=== PATIENT | female | born 1970 | race Caucasian/White ===

== ENCOUNTER → 2016-09-24 | Outpatient (CLI) | payer BC ==
[2014-12-12 11:24] VITALS: BP 115/75
--- NOTE | 2016-09-24 16:57 | KCIC ---
MR LUMBAR SPINE Indication: Chronic low back pain COMPARISON: None Technique: Sagittal T2, sagittal STIR, and sagittal T1-weighted images were obtained. Additional axial T1 and T2 weighted imaging was also performed. FINDINGS: Alignment and curvature are within normal limits. No compression deformities are identified. No abnormal bone marrow signal is seen. The conus is in normal position without abnormal signal. Paravertebral soft tissues are unremarkable. Visualized intra-abdominal contents are within normal limits. Level by level analysis demonstrates no significant central spinal or neural foraminal stenosis. IMPRESSION: Negative for compression fracture or canal stenosis. Electronically signed by: Mazin Arzola MD (09/24/2016 3:38 PM)
== END | disposition home or self-care (01) ==
LOC: KCIC MRI 14:19
PROVIDERS: ATTEND Physician Assistant
DX: M54.5 Low back pain (principal); G89.29 Other chronic pain
CPT/HCPCS: 72148

== ENCOUNTER 2017-01-19 15:58 | Inpatient (IN) | payer BC ==
[~2017-01-19] VITALS: Ht 175.3 cm; Wt 87.1 kg
[2017-01-19 19:00] VITALS: BP 150/98
[2017-01-19] MEDS ORDERED: LEVO150T5 PO (20:39)
[2017-01-19] MEDS ORDERED: BISACODYL 5 MG TABLET.DR. PO PRN (21:00)
[2017-01-19] MEDS: IV NORMAL SALINE 1000ML BAG 1,000 ML IV SCH (21:21)
[2017-01-19] MEDS: HYDROmorphone 2 MG/ML VIAL IV PRN (21:23)
[2017-01-19 23:00] VITALS: BP 139/98
[2017-01-20] MEDS ORDERED: LEVO150T5 PO (02:43)
[2017-01-20 03:00] VITALS: BP 123/65
[2017-01-20 05:07] LABS: BASO # 0.1 x10^3/uL (0.0-0.2); BASO % 1 % (0-3); EOS % 5 % (0-3); HEMATOCRIT 39.8 % (36.0-47.0); HEMOGLOBIN 12.9 g/dL (12.0-15.5); LYMPH # 1.5 x10^3/uL (1.0-4.8); LYMPH % 25 % (24-48); MEAN CORPUSCULAR HEMOGLOBIN 29 pg (25-35); MEAN CORPUSCULAR HGB CONC 33 g/dL (31-37); MEAN CORPUSCULAR VOLUME 90 fL (79-100); MONO % 7 % (0-9); NEUT % 62 % (31-73); PLATELET COUNT 169 x10^3/uL (140-400); RED BLOOD COUNT 4.43 x10^6/uL (3.50-5.40); RED CELL DISTRIBUTION WIDTH 14.7 % (11.5-14.5); WHITE BLOOD COUNT 6.1 x10^3/uL (4.0-11.0)
[2017-01-20 05:39] LABS: CALCIUM 8.7 mg/dL (8.5-10.1); CREATININE 0.9 mg/dL (0.6-1.0); POTASSIUM 4.2 mmol/L (3.5-5.1)
[2017-01-20 07:00] VITALS: BP 122/80
[2017-01-20] MEDS ORDERED: DOCUSATE SODIUM 283 MG/5 ML ENEMA. PR PRN (09:30)
[2017-01-20] MEDS ORDERED: MAGNESIUM CITRATE 296 ML SOLUTION. PO PRN (09:30)
[2017-01-20] MEDS ORDERED: methylPREDNISolone ACETATE 40 MG/ML VIAL. IM ONE ×2 (09:30)
[2017-01-20] MEDS ORDERED: BISACODYL 10 MG SUPP.RECT. PR PRN ×2 (09:30→10:00)
[2017-01-20] MEDS ORDERED: BUPIVACAINE MPF 0.25% 10 ML VIAL. IJ ONE (09:30)
[2017-01-20] MEDS ORDERED: LACTULOSE 20 GM/30 ML SOLUTION. PO PRN (10:00)
[2017-01-20] MEDS ORDERED: hydrALAZINE 20 MG/ML VIAL. IVP PRN (10:00)
[2017-01-20] MEDS ORDERED: DOCUSATE SODIUM 100 MG CAPSULE. PO PRN (10:00)
[2017-01-20] MEDS: MAGNESIUM HYDROXIDE 2,400 MG/30 ML ORAL.SUSP. PO SCH ×2 (10:00→20:54)
[2017-01-20] MEDS ORDERED: ACETAMINOPHEN 325 MG TABLET. PO PRN (10:00)
[2017-01-20] MEDS: PANTOPRAZOLE 40 MG TABLET.DR. PO SCH (10:11)
[2017-01-20] MEDS: BISACODYL 5 MG TABLET.DR. PO SCH (10:11)
[2017-01-20] MEDS: DOCUSATE SODIUM 100 MG CAPSULE. PO SCH ×2 (10:34→20:53)
[2017-01-20] MEDS: LEVOTHYROXINE 150 MCG TABLET PO SCH (10:35)
[2017-01-20] MEDS: IV NORMAL SALINE 1000ML BAG 1,000 ML IV SCH (10:35)
[2017-01-20 11:00] VITALS: BP 137/95
--- NOTE | 2017-01-20 13:06 | PDOC1 ---
History and Physical Date of Admission Date of Admission 01/19/17 Identification/Chief Complaint Chief Complaint back pain Problems: Source Source: Chart review, Patient History of Present Illness History of Present Illness 46yo F, with chronic back pain ,was transferred from [facility] for back pain. pt got iv pain meds and ativan overnight, currently very sleepy, cannot give me a good history. She said she has had lower back pain for 1 year, fu many docs, but cannot find an etiology and never got intervention or steroid shot. allergic to morphine, hydrocodone and oxycodone, which cause itchyness, but ok to dilaudid and tramadol. Pt said she was standing at work yesterday, felt cannot move legs with the pain , the back pain shooting down to right leg with some right leg numbness. got mulitple MRI before, last time was 10/2016. 09/2016 MRi here neg. has constipation x2 weeks, urine incontinence to dr. Chavez but pt told me no urination problem. she said right leg weakness x1 year, not obvious in exam tho. denies fever, chills, sob, cough, chest pain. Past Medical History Cardiovascular: No pertinent hx Pulmonary: No pertinent hx GI: Other Heme/Onc: No pertinent hx Endocrine: Hypothyroidism Past Surgical History Past Surgical History: Tonsillectomy Family History Family History: Hypertension Social History Smoke: No ALCOHOL: none Drugs: None Current Medications Current Medications Current Medications Medications (Trade) Dose Ordered Sig/Anibal Start Time Stop Time Status Last Admin Dose Admin Acetaminophen (Tylenol) 650 mg PRN Q6HRS PRN 01/20/17 10:00 Bisacodyl (Dulcolax Supp) 10 mg PRN DAILY PRN 01/20/17 10:00 UNV Bisacodyl (Dulcolax Tab) 10 mg DAILY 01/20/17 09:45 01/20/17 10:11 10 MG Bupivacaine HCl (Sensorcaine-Mpf 0.25%) 10 ml 1X ONCE 01/20/17 09:30 01/20/17 09:44 DC 01/20/17 10:10 10 ML Docusate Sodium (Colace) 100 mg BID 01/20/17 11:00 01/20/17 10:34 100 MG Docusate Sodium (Enemeez) 283 mg PRN DAILY PRN 01/20/17 09:30 Hydralazine HCl (Apresoline) 10 mg PRN Q4HRS PRN 01/20/17 10:00 Hydromorphone HCl (Dilaudid) 2 mg PRN Q2HR PRN 01/19/17 21:00 01/19/17 21:23 2 MG Ibuprofen (Motrin) 800 mg TID 01/20/17 14:00 Lactulose 20 gm PRN Q12HR PRN 01/20/17 10:00 Levothyroxine Sodium (Synthroid) 150 mcg DAILY07 01/20/17 11:00 01/20/17 10:35 150 MCG Lorazepam (Ativan) 1 mg PRN Q4HRS PRN 01/19/17 21:00 01/20/17 09:57 DC 01/20/17 08:34 0.5 MG Magnesium Hydroxide (Milk Of Magnesia) 2,400 mg BID 01/20/17 10:00 01/20/17 10:00 2,400 MG Magnesium Citrate (Citroma) 296 ml PRN 1X PRN 01/20/17 09:30 Methylprednisolone Acetate (DEPO-Medrol 40MG VIAL) 40 mg 1X ONCE 01/20/17 09:30 01/20/17 09:44 DC 01/20/17 10:10 40 MG Ondansetron HCl (Zofran) 4 mg PRN Q6HRS PRN 01/20/17 10:00 Pantoprazole Sodium (Protonix) 40 mg DAILYAC 01/20/17 10:30 01/20/17 10:11 40 MG Senna/Docusate Sodium (Senna Plus) 1 tab BID 01/20/17 21:00 Sodium Chloride 1,000 ml @ 75 mls/hr [id number] 01/19/17 21:30 01/20/17 10:35 75 MLS/HR Tramadol HCl (Ultram) 100 mg PRN Q6HRS PRN 01/20/17 10:00 Allergies Allergies Allergies Coded Allergies Type Severity Reaction Last Updated Verified Penicillins Allergy Intermediate Itching 12/09/14 Yes codeine Allergy Intermediate Itching 12/12/14 Yes hydrocodone Allergy Intermediate Hives 01/19/17 Yes oxycodone Allergy Intermediate Hives 12/12/14 Yes metoclopramide Adverse Reaction Severe Visual Halluciations 12/11/14 Yes ROS Review of System CONSTITUTIONAL: No fever or chills EYES: No recent changes SKIN: No rash or itching CARDIOVASCULAR: No chest pain, syncope, palpitations, or edema RESPIRATORY: No SOB or cough GASTROINTESTINAL: No nausea, vomiting or abdominal pain NEUROLOGICAL: No headaches or weakness ENDOCRINE: No cold or heat intolerance GENITOURINARY: No urgency or frequency of urination MUSCULOSKELETAL: No back pain or joint pain LYMPHATICS: No enlarged lymph nodes PSYCHIATRIC: No anxiety or depression Physical Exam Physical Exam GEN.: No apparent distress. Alert and oriented. very sleepy HEENT: Head is normocephalic, atraumatic NECK: Supple. LUNGS: Clear to auscultation. HEART: RRR, S1, S2 present. Peripheral pulses intact ABDOMEN: Soft, nontender. Positive bowel sounds. EXTREMITIES: Without any cyanosis. right side not obvious weakness compared to left side NEUROLOGIC: Normal speech, normal tone PSYCHIATRIC: Normal affect, normal mood. SKIN: No ulcerations Vitals Vitals Vital Signs Date Time Temp Pulse Resp B/P (MAP) Pulse Ox O2 Delivery O2 Flow Rate FiO2 01/20/17 11:00 97.5 68 16 137/95 (109) 99 Room Air 97.5 Labs Labs Laboratory Tests Test 01/20/17 04:37 White Blood Count 6.1 x10^3/uL (4.0-11.0) Red Blood Count 4.43 x10^6/uL (3.50-5.40) Hemoglobin 12.9 g/dL (12.0-15.5) Hematocrit 39.8 % (36.0-47.0) Mean Corpuscular Volume 90 fL (79-100) Mean Corpuscular Hemoglobin 29 pg (25-35) Mean Corpuscular Hemoglobin Concent 33 g/dL (31-37) Red Cell Distribution Width 14.7 % (11.5-14.5) Platelet Count 169 x10^3/uL (140-400) Neutrophils (%) (Auto) 62 % (31-73) Lymphocytes (%) (Auto) 25 % (24-48) Monocytes (%) (Auto) 7 % (0-9) Eosinophils (%) (Auto) 5 % (0-3) Basophils (%) (Auto) 1 % (0-3) Neutrophils # (Auto) 3.7 x10^3uL (1.8-7.7) Lymphocytes # (Auto) 1.5 x10^3/uL (1.0-4.8) Monocytes # (Auto) 0.4 x10^3/uL (0.0-1.1) Eosinophils # (Auto) 0.3 x10^3/uL (0.0-0.7) Basophils # (Auto) 0.1 x10^3/uL (0.0-0.2) Sodium Level 139 mmol/L (136-145) Potassium Level 4.2 mmol/L (3.5-5.1) Chloride Level 105 mmol/L (98-107) Carbon Dioxide Level 24 mmol/L (21-32) Anion Gap 10 (6-14) Blood Urea Nitrogen 12 mg/dL (7-20) Creatinine 0.9 mg/dL (0.6-1.0) Estimated GFR (Cockcroft-Gault) 68.0 Glucose Level 87 mg/dL (70-99) Calcium Level 8.7 mg/dL (8.5-10.1) Laboratory Tests Test 01/20/17 04:37 White Blood Count 6.1 x10^3/uL (4.0-11.0) Red Blood Count 4.43 x10^6/uL (3.50-5.40) Hemoglobin 12.9 g/dL (12.0-15.5) Hematocrit 39.8 % (36.0-47.0) Mean Corpuscular Volume 90 fL (79-100) Mean Corpuscular Hemoglobin 29 pg (25-35) Mean Corpuscular Hemoglobin Concent 33 g/dL (31-37) Red Cell Distribution Width 14.7 % (11.5-14.5) Platelet Count 169 x10^3/uL (140-400) Neutrophils (%) (Auto) 62 % (31-73) Lymphocytes (%) (Auto) 25 % (24-48) Monocytes (%) (Auto) 7 % (0-9) Eosinophils (%) (Auto) 5 % (0-3) Basophils (%) (Auto) 1 % (0-3) Neutrophils # (Auto) 3.7 x10^3uL (1.8-7.7) Lymphocytes # (Auto) 1.5 x10^3/uL (1.0-4.8) Monocytes # (Auto) 0.4 x10^3/uL (0.0-1.1) Eosinophils # (Auto) 0.3 x10^3/uL (0.0-0.7) Basophils # (Auto) 0.1 x10^3/uL (0.0-0.2) Sodium Level 139 mmol/L (136-145) Potassium Level 4.2 mmol/L (3.5-5.1) Chloride Level 105 mmol/L (98-107) Carbon Dioxide Level 24 mmol/L (21-32) Anion Gap 10 (6-14) Blood Urea Nitrogen 12 mg/dL (7-20) Creatinine 0.9 mg/dL (0.6-1.0) Estimated GFR (Cockcroft-Gault) 68.0 Glucose Level 87 mg/dL (70-99) Calcium Level 8.7 mg/dL (8.5-10.1) VTE Prophylaxis Ordered VTE Prophylaxis Devices: Yes VTE Pharmacological Prophylaxi: Yes Assessment/Plan Assessment/Plan worsening chronic lower back pain 2/2 muscle sprain vs. sciatica constipation hypothyroidism plan: fu with , steroid injection today, MRI held as per dr. Chavez cont synthroid, check tsh ,t4 pain control, add dilaudid po dvt ppx add stool softner. ALTHEA GOOD MD Jan 20, 2017 13:06
[2017-01-20] MEDS: ONDANSETRON PF 4 MG/2 ML VIAL. IV PRN (13:36)
--- NOTE | 2017-01-20 14:17 | PDOC2 ---
NEUROLOGY CONSULT Date of Admission Date of Admission DATE: 01/20/17 TIME: 14:08 Reason for Consult Reason for Consult: Back pain Referring Physician Referring Physician: Dr. Sadler PCP: Dr. Pierson Source Source: Chart review, Patient History of Present Illness History of Present Illness The patient is a 46-year-old right-handed female who has had chronic back pain radiating down both legs for at least 2 years. She occasionally has right foot numbness. She has had several MRI studies. She has had physical therapy. She has not had any interventional pain procedures. She has had recent imaging studies as reviewed below. She went to the [facility] emergency room and was transferred down here. Neurology, neurosurgery, and physiatry have been consulted. Past Medical History Heme/Onc: Anemia NOS Psych: Anxiety, Depression Musculoskeletal: low back pain Renal/: UTI, Other (polycystic ovarian syndrome, endometriosis, nephrolithiasis) Endocrine: Hypothyroidism Past Surgical History Past Surgical History: , Tonsillectomy, Other (thyroidectomy, several D and C's) Family History Family History: Arthritis Social History Social History Single, stressed out at work and at home, one child is disabled, no tobacco or alcohol Current Medications Current Medications Current Medications Sodium Chloride 1,000 ml @ 75 mls/hr [id number] IV Last administered on 10:35; Start 01/19/17 at 21:30; Stop 01/20/17 at 12:59; Status DC Hydromorphone HCl (Dilaudid) 2 mg PRN Q2HR PRN IV PAIN Last administered on 21:23; Start 01/19/17 at 21:00 Lorazepam (Ativan) 1 mg PRN Q4HRS PRN IV ANXIETY / AGITATION Last administered on 01/20/17 08:34; Start 01/19/17 at 21:00; Stop 01/20/17 at 09:57; Status DC Bisacodyl (Dulcolax Tab) 10 mg PRN DAILY PRN PO CONSTIPATION Last administered on 01/19/17 21:23; Start 01/19/17 at 21:00; Stop 01/20/17 at 09:42; Status DC Bisacodyl (Dulcolax Tab) 10 mg DAILY PO Last administered on 01/20/17 10:11; Start 01/20/17 at 09:45 Methylprednisolone Acetate (DEPO-Medrol 40MG VIAL) 40 mg 1X ONCE IM Last administered on 01/20/17 10:09; Start 01/20/17 at 09:30; Stop 01/20/17 at 09:44 ; Status DC Methylprednisolone Acetate (DEPO-Medrol 40MG VIAL) 40 mg 1X ONCE IM Last administered on 01/20/17 10:10; Start 01/20/17 at 09:30; Stop 01/20/17 at 09:44 ; Status DC Bupivacaine HCl (Sensorcaine-Mpf 0.25%) 10 ml 1X ONCE IJ Last administered on 01/20/17 10:10; Start 01/20/17 at 09:30; Stop 01/20/17 at 09:44; Status DC Bisacodyl (Dulcolax Supp) 10 mg PRN DAILY PRN AL CONSTIPATION; Start 01/20/17 at 09:30 Magnesium Citrate (Citroma) 296 ml PRN 1X PRN PO CONSTIPATION; Start 01/20/17 at 09:30 Docusate Sodium (Enemeez) 283 mg PRN DAILY PRN AL CONSTIPATION; Start 01/20/17 at 09:30 Ibuprofen (Motrin) 800 mg TID PO ; Start 01/20/17 at 14:00 Pantoprazole Sodium (Protonix) 40 mg DAILYAC PO Last administered on 01/20/17 10:11; Start 01/20/17 at 10:30 Levothyroxine Sodium (Synthroid) 150 mcg DAILY07 PO Last administered on 10:35; Start 01/20/17 at 11:00 Acetaminophen (Tylenol) 650 mg PRN Q6HRS PRN PO FEVER; Start 01/20/17 at 10:00 Ondansetron HCl (Zofran) 4 mg PRN Q6HRS PRN IV NAUSEA/VOMITING Last administered on 01/20/17 13:36; Start 01/20/17 at 10:00 Hydralazine HCl (Apresoline) 10 mg PRN Q4HRS PRN IVP ELEVATED BP, SEE COMMENTS ; Start 01/20/17 at 10:00 Docusate Sodium (Colace) 100 mg PRN DAILY PRN PO CONSTIPATION; Start 01/20/17 at 10:00 Tramadol HCl (Ultram) 100 mg PRN Q6HRS PRN PO PAIN; Start 01/20/17 at 10:00 Senna/Docusate Sodium (Senna Plus) 1 tab BID PO ; Start 01/20/17 at 21:00 Docusate Sodium (Colace) 100 mg BID PO Last administered on 01/20/17 10:34; Start 01/20/17 at 11:00 Magnesium Hydroxide (Milk Of Magnesia) 2,400 mg BID PO Last administered on 10:00; Start 01/20/17 at 10:00 Lactulose 20 gm PRN Q12HR PRN PO CONSTIPATION; Start 01/20/17 at 10:00 Bisacodyl (Dulcolax Supp) 10 mg PRN DAILY PRN AL CONSTIPATION; Start 01/20/17 at 10:00; Status UNV Hydromorphone HCl (Dilaudid) 2 mg PRN Q4HRS PRN PO PAIN; Start 01/20/17 at 13: 00 Enoxaparin Sodium (Lovenox 40mg Syringe) 40 mg Q24H SQ ; Start 01/20/17 at 14:00 Active Scripts Active Reported Levothyroxine Sodium 150 Mcg Tablet 1 Tab PO DAILY Levothyroxine Sodium 150 Mcg Tablet 1 Tab PO DAILY Allergies Allergies: Coded Allergies: Penicillins (Verified Allergy, Intermediate, Itching, 12/09/14) codeine (Verified Allergy, Intermediate, Itching, 12/12/14) Reports codeine, and codeine "related", also "oxy's" make her itch hydrocodone (Verified Allergy, Intermediate, Hives, 01/19/17) Itching and Hives after taking Lortab and Percocet. Dilaudid ok oxycodone (Verified Allergy, Intermediate, Hives, 12/12/14) Itching and Hives after taking Percocet and Lortab metoclopramide (Verified Adverse Reaction, Severe, Visual Halluciations, ) Visual Hallucinations ROS Review of System Patient denies fevers, chills, weight loss, dyspnea, angina, abdominal pain, change in bowels, or dysuria. 14 point review of systems is negative. Physical Exam Physical Examination PHYSICAL EXAMINATION: Vital signs: see above. General appearance is normal and in no acute distress. She is fast asleep when I come in the room, easily aroused. HEENT: Normocephalic and nontraumatic. Eyes, nose, ears, and throat are unremarkable. Neck is supple. No lymphadenopathy. No bruits are heard over the carotid artery. No crepitus. Back: Fairly good range of motion, normal straight leg raising tests. NEUROLOGICAL EXAMINATION: Mental Status Examination: Alert. Oriented to time, place, and person. Answers questions and follows commends. Pupils are equal round and reactive to light and accommodation. Extraocular movements are intact. Visual field exam shows no defect on the direct confrontation. No motor or sensory deficits on the facial exam. Uvula in the midline and the soft palate elevated symmetrically. No deviation of the tongue to any direction. Gross hearing is normal. Shoulder shrug normal. Muscle tone is normal. Muscle strength is 5. Deep tendon reflexes are 2+ all around. Plantar reflex is with flexion response bilaterally. [id number] test performance is accurate. Tandem walk test is accurate. Alternative movements are accurate. Romberg test is negative. Gait is antalgic. Sensory exam shows no deficits. No cerebellar signs are elicited. Vitals VITALS Vital Signs Date Time Temp Pulse Resp B/P (MAP) Pulse Ox O2 Delivery O2 Flow Rate FiO2 01/20/17 11:00 97.5 68 16 137/95 (109) 99 Room Air 97.5 Labs Labs Laboratory Tests Test 01/20/17 04:37 White Blood Count 6.1 x10^3/uL (4.0-11.0) Red Blood Count 4.43 x10^6/uL (3.50-5.40) Hemoglobin 12.9 g/dL (12.0-15.5) Hematocrit 39.8 % (36.0-47.0) Mean Corpuscular Volume 90 fL (79-100) Mean Corpuscular Hemoglobin 29 pg (25-35) Mean Corpuscular Hemoglobin Concent 33 g/dL (31-37) Red Cell Distribution Width 14.7 % (11.5-14.5) Platelet Count 169 x10^3/uL (140-400) Neutrophils (%) (Auto) 62 % (31-73) Lymphocytes (%) (Auto) 25 % (24-48) Monocytes (%) (Auto) 7 % (0-9) Eosinophils (%) (Auto) 5 % (0-3) Basophils (%) (Auto) 1 % (0-3) Neutrophils # (Auto) 3.7 x10^3uL (1.8-7.7) Lymphocytes # (Auto) 1.5 x10^3/uL (1.0-4.8) Monocytes # (Auto) 0.4 x10^3/uL (0.0-1.1) Eosinophils # (Auto) 0.3 x10^3/uL (0.0-0.7) Basophils # (Auto) 0.1 x10^3/uL (0.0-0.2) Sodium Level 139 mmol/L (136-145) Potassium Level 4.2 mmol/L (3.5-5.1) Chloride Level 105 mmol/L (98-107) Carbon Dioxide Level 24 mmol/L (21-32) Anion Gap 10 (6-14) Blood Urea Nitrogen 12 mg/dL (7-20) Creatinine 0.9 mg/dL (0.6-1.0) Estimated GFR (Cockcroft-Gault) 68.0 Glucose Level 87 mg/dL (70-99) Calcium Level 8.7 mg/dL (8.5-10.1) Laboratory Tests Test 01/20/17 04:37 White Blood Count 6.1 x10^3/uL (4.0-11.0) Red Blood Count 4.43 x10^6/uL (3.50-5.40) Hemoglobin 12.9 g/dL (12.0-15.5) Hematocrit 39.8 % (36.0-47.0) Mean Corpuscular Volume 90 fL (79-100) Mean Corpuscular Hemoglobin 29 pg (25-35) Mean Corpuscular Hemoglobin Concent 33 g/dL (31-37) Red Cell Distribution Width 14.7 % (11.5-14.5) Platelet Count 169 x10^3/uL (140-400) Neutrophils (%) (Auto) 62 % (31-73) Lymphocytes (%) (Auto) 25 % (24-48) Monocytes (%) (Auto) 7 % (0-9) Eosinophils (%) (Auto) 5 % (0-3) Basophils (%) (Auto) 1 % (0-3) Neutrophils # (Auto) 3.7 x10^3uL (1.8-7.7) Lymphocytes # (Auto) 1.5 x10^3/uL (1.0-4.8) Monocytes # (Auto) 0.4 x10^3/uL (0.0-1.1) Eosinophils # (Auto) 0.3 x10^3/uL (0.0-0.7) Basophils # (Auto) 0.1 x10^3/uL (0.0-0.2) Sodium Level 139 mmol/L (136-145) Potassium Level 4.2 mmol/L (3.5-5.1) Chloride Level 105 mmol/L (98-107) Carbon Dioxide Level 24 mmol/L (21-32) Anion Gap 10 (6-14) Blood Urea Nitrogen 12 mg/dL (7-20) Creatinine 0.9 mg/dL (0.6-1.0) Estimated GFR (Cockcroft-Gault) 68.0 Glucose Level 87 mg/dL (70-99) Calcium Level 8.7 mg/dL (8.5-10.1) Images Images MRI lumbar 09/24/16: MR LUMBAR SPINE Indication: Chronic low back pain COMPARISON: None Technique: Sagittal T2, sagittal STIR, and sagittal T1-weighted images were obtained. Additional axial T1 and T2 weighted imaging was also performed. FINDINGS: Alignment and curvature are within normal limits. No compression deformities are identified. No abnormal bone marrow signal is seen. The conus is in normal position without abnormal signal. Paravertebral soft tissues are unremarkable. Visualized intra-abdominal contents are within normal limits. Level by level analysis demonstrates no significant central spinal or neural foraminal stenosis. IMPRESSION: Negative for compression fracture or canal stenosis. CT abdomen/pelvis 11/19/16: Comparison: CT pelvis without contrast July 24, 2013 Technique: Multiple CT images of the abdomen and pelvis were obtained following uneventful intravenous administration of 75 mL Omnipaque 300. Coronal and sagittal reformations were obtained. PQRS Compliance Statement: One or more of the following individualized dose reduction techniques were utilized for this examination: 1. Automated exposure control 2. Adjustment of the mA and/or kV according to patient size 3. Use of iterative reconstruction technique Findings: Abdomen and pelvis: Heart size is normal and lung bases are clear. Examination is somewhat limited due to motion artifact especially of the mid abdomen. Liver is normal in morphology. There is a stable 7 mm hypodense hepatic segment 8 (series 4/image 9) and is too small to definitively characterize, though stability suggests benign cyst or hemangioma. Evaluation of the inferior right and left lobes of the liver is significantly limited due to motion artifact. Prior cholecystectomy. No intra or extra-axial biliary ductal dilatation. Spleen, adrenal glands and pancreas are within normal limits. There are a few 2 mm nonobstructive left renal calculi. No collecting system dilatation. Abdominal aorta is normal in caliber. Mild calcified atheromatous disease of the iliac arteries. No bowel obstruction. No abdominal free fluid. There is fecal lies distal small bowel contents which suggests component of delayed transit. Mild distended and unopacified urinary bladder demonstrates mild circumferential urinary bladder wall thickening. Uterus is present and, though incompletely evaluated by CT. No iliac or inguinal lymphadenopathy. No retroperitoneal lymphadenopathy. No destructive osseous lesions. Impression: 1. Examination of the mid abdomen is somewhat limited due to motion. 2. Two tiny nonobstructive left nephrolithiasis. 3. Mild circumferential urinary bladder wall thickening, can be seen with cystitis. Correlation with urinalysis is recommended. Assessment/Plan Assessment/Plan Impression: Back pain, negative imaging studies, negative examination, no evidence of a neurological cause. she does have some kidney stones which should not be causing a problem. Recommendations: Physiatry and neurosurgery have been consulted and there is really nothing for this neurologist to add at this time. I would be glad to do an EMG study if deemed necessary by neurosurgery, but Dr. Chavez can do this as well. 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 Thank you for letting me help with the patient's care. CLEMENCIA BEAR MD Jan 20, 2017 14:17
--- NOTE | 2017-01-20 14:55 | RAD ---
Portable abdomen, 01/20/2017: History: Constipation There is increased stool, particularly in the left colon. The abdominal gas pattern is otherwise unremarkable. There is no evidence of organomegaly. Surgical clips are present in the right upper quadrant compatible with a cholecystectomy. Lower pelvic calcifications are compatible with phleboliths. IMPRESSION: Increased stool in the colon.
[2017-01-20 15:00] VITALS: BP 132/87
[2017-01-20] MEDS: IBUPROFEN 800 MG TABLET. PO SCH ×2 (16:03→20:54)
[2017-01-20] MEDS: ENOXAPARIN 40 MG/0.4 ML SYRINGE. SQ SCH (16:03)
--- NOTE | 2017-01-20 16:13 | CONS ---
DATE OF CONSULTATION: 01/20/2017 DATE OF SERVICE: 01/20/2017 REQUESTING AND ATTENDING PHYSICIAN: Dr. Sadler. REASON FOR CONSULTATION: Rehab evaluation. PATIENT LOCATION: Room #444. HISTORY OF PRESENT ILLNESS: This is a 46-year-old female admitted through Emergency Room with complaint of severe lower back pain with radiation to her right lower extremity with associated numbness and also admits urinary incontinence and constipation for about 2 weeks. She denies any specific injury. Problem started about 6 months ago. She had all the radiological studies which failed to reveal any abnormalities, but MRI scan done in October, I can look at the pictures which revealed mild bulging of the disk at L5-S1 and to some extent at L4-L5 without any obvious stenosis or neural foraminal compromise. The patient had gone through physical therapy without any lasting help. ALLERGIES: The patient is known ALLERGIC TO PENICILLIN, CODEINE, HYDROCODONE, REGLAN and OXYCODONE. SOCIAL HISTORY: She lives with her and children in [place], [place], home had no steps for her to manage. 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 PHYSICAL EXAMINATION: Today revealed a middle-aged female patient in moderate distress. She is somewhat sleepy this morning. She is using oxygen by nasal cannula. The patient admits that she has not slept for about 2 days. The patient had tenderness to palpation over right sacroiliac joint area and trochanteric bursa. Straight leg raising test is negative bilaterally. No significant lumbar paraspinal muscle spasm was noted at this time. She also had minimal tenderness to palpation over left sacroiliac joint and trochanteric bursa. She had pain free range of motion of both hip, knee and ankle joints. She had 5/5 grade muscle strength in her lower extremities. Deep tendon reflexes are 2+ at her knees, 1+ at both ankles. She had slightly decreased touch and pinprick sensation over right lateral femoral cutaneous nerve distribution in the right thigh lateral aspect. Other than that equal perception of touch and pinprick sensation bilaterally. She admits some numbness in her right hand, but on physical examination, she had normal neurological examination of both upper extremities. She had painful limited movements of her lumbar spine. She is independent with bed mobility. She transfers slowly and she made a few steps at bedside. Her skin is intact at this time. Negative Tinel sign over right lateral femoral cutaneous nerve over inguinal ligament area. ASSESSMENT: A middle-aged female with chronic lower back pain, most probably from degenerative disk disease of lumbar vertebrae with right lumbar radiculitis. No clinical evidence of ongoing lumbar radiculopathy. She also presents with meralgia paresthetica of the right thigh. She also presents with trochanteric bursitis bilaterally, right side more than left side. RECOMMENDATIONS: At her request, I have injected painful right sacroiliac joint and right trochanteric bursa under aseptic skin technique after skin preparation using alcohol swab with Marcaine and Depo-Medrol solution. She tolerated the procedure satisfactorily without any side effects. To get her lumbar corset, to ask Physical Therapy to see her for proper body mechanics. I have instructed her in home exercise program of physical modalities, stretching exercises and proper body mechanics. She was advised to use a cane in her left hand to help ease her right trochanteric bursa pain and the pain eases, to start her on ibuprofen as an anti-inflammatory medication and Protonix to help protect her stomach and to consider lumbar epidural steroid injections if the pain persists. Dr. Sadler, I appreciate asking me to participate in the care of this interesting patient. I will be glad to follow her with you as needed for her rehabilitation. PENNY KING MD DR: MARCELL/po JOB#: [id number] / [id number] LEXA Barrera MD
[2017-01-20] MEDS: traMADol 50 MG TABLET PO PRN (17:38)
[2017-01-20 19:00] VITALS: BP 123/83
[2017-01-20] MEDS: SENNOSIDES/DOCUSATE 8.6/50MG TABLET. PO SCH (20:53)
[2017-01-20] MEDS: HYDROmorphone 2 MG/ML VIAL IV PRN (21:53)
[2017-01-20 23:00] VITALS: BP 117/81
[2017-01-21 03:00] VITALS: BP 116/79
[2017-01-21] MEDS: ONDANSETRON PF 4 MG/2 ML VIAL. IV PRN (05:39)
[2017-01-21 05:40] LABS: BASO # 0.1 x10^3/uL (0.0-0.2); BASO % 1 % (0-3); EOS % 3 % (0-3); HEMATOCRIT 39.1 % (36.0-47.0); HEMOGLOBIN 13.2 g/dL (12.0-15.5); LYMPH # 1.1 x10^3/uL (1.0-4.8); LYMPH % 22 % (24-48); MEAN CORPUSCULAR HEMOGLOBIN 30 pg (25-35); MEAN CORPUSCULAR HGB CONC 34 g/dL (31-37); MEAN CORPUSCULAR VOLUME 88 fL (79-100); MONO % 8 % (0-9); NEUT % 66 % (31-73); PLATELET COUNT 204 x10^3/uL (140-400); RED BLOOD COUNT 4.46 x10^6/uL (3.50-5.40); RED CELL DISTRIBUTION WIDTH 14.7 % (11.5-14.5); WHITE BLOOD COUNT 4.9 x10^3/uL (4.0-11.0)
[2017-01-21 06:14] LABS: CALCIUM 8.7 mg/dL (8.5-10.1); CREATININE 0.9 mg/dL (0.6-1.0)
[2017-01-21 06:24] LABS: FREE T4 0.77 ng/dL (0.76-1.46)
[2017-01-21 07:00] VITALS: BP 130/83
--- NOTE | 2017-01-21 07:49 | PDOC ---
PROGRESS NOTES Assessment Back pain, negative imaging studies, negative examination, no evidence of a neurological cause. she does have some kidney stones which should not be causing a problem. She is no better after injections by Dr. Chavez Plan Physiatry and neurosurgery have been consulted and there is really nothing for this neurologist to add at this time. Note the patient has failed on Lyrica, antidepressants, and does not want to take any stronger narcotics because of her job and 5 children I would be glad to do an EMG study if deemed necessary by neurosurgery, but Dr. Chavez can do this as well. Nothing to be gained by continued hospital stay, the next step is to consult pain management as an outpatient. Subjective Pain is no better Objective Vital Signs Date Time Temp Pulse Resp B/P (MAP) Pulse Ox O2 Delivery O2 Flow Rate FiO2 01/21/17 03:00 98.9 60 18 116/79 (91) 96 Room Air 98.9 01/20/17 20:00 2.0 PHYSICAL EXAM Alert. Oriented to time, place and person. PERRL. EOMI. CN: no focal findings. Muscle tone: normal. Muscle strength: 5/5 DTR: 2+ Plantar reflex: Flexor Gait: Antalgic Sensory exam: no abnormal findings. No cerebellar signs elicited. Review of Relevant I have reviewed the following items kayla (where applicable) has been applied. Labs Laboratory Tests Test 01/20/17 04:37 01/21/17 05:15 White Blood Count 6.1 x10^3/uL (4.0-11.0) 4.9 x10^3/uL (4.0-11.0) Red Blood Count 4.43 x10^6/uL (3.50-5.40) 4.46 x10^6/uL (3.50-5.40) Hemoglobin 12.9 g/dL (12.0-15.5) 13.2 g/dL (12.0-15.5) Hematocrit 39.8 % (36.0-47.0) 39.1 % (36.0-47.0) Mean Corpuscular Volume 90 fL (79-100) 88 fL (79-100) Mean Corpuscular Hemoglobin 29 pg (25-35) 30 pg (25-35) Mean Corpuscular Hemoglobin Concent 33 g/dL (31-37) 34 g/dL (31-37) Red Cell Distribution Width 14.7 % (11.5-14.5) 14.7 % (11.5-14.5) Platelet Count 169 x10^3/uL (140-400) 204 x10^3/uL (140-400) Neutrophils (%) (Auto) 62 % (31-73) 66 % (31-73) Lymphocytes (%) (Auto) 25 % (24-48) 22 % (24-48) Monocytes (%) (Auto) 7 % (0-9) 8 % (0-9) Eosinophils (%) (Auto) 5 % (0-3) 3 % (0-3) Basophils (%) (Auto) 1 % (0-3) 1 % (0-3) Neutrophils # (Auto) 3.7 x10^3uL (1.8-7.7) 3.2 x10^3uL (1.8-7.7) Lymphocytes # (Auto) 1.5 x10^3/uL (1.0-4.8) 1.1 x10^3/uL (1.0-4.8) Monocytes # (Auto) 0.4 x10^3/uL (0.0-1.1) 0.4 x10^3/uL (0.0-1.1) Eosinophils # (Auto) 0.3 x10^3/uL (0.0-0.7) 0.2 x10^3/uL (0.0-0.7) Basophils # (Auto) 0.1 x10^3/uL (0.0-0.2) 0.1 x10^3/uL (0.0-0.2) Sodium Level 139 mmol/L (136-145) 139 mmol/L (136-145) Potassium Level 4.2 mmol/L (3.5-5.1) 4.0 mmol/L (3.5-5.1) Chloride Level 105 mmol/L (98-107) 103 mmol/L (98-107) Carbon Dioxide Level 24 mmol/L (21-32) 31 mmol/L (21-32) Anion Gap 10 (6-14) 5 (6-14) Blood Urea Nitrogen 12 mg/dL (7-20) 13 mg/dL (7-20) Creatinine 0.9 mg/dL (0.6-1.0) 0.9 mg/dL (0.6-1.0) Estimated GFR (Cockcroft-Gault) 68.0 68.0 Glucose Level 87 mg/dL (70-99) 98 mg/dL (70-99) Calcium Level 8.7 mg/dL (8.5-10.1) 8.7 mg/dL (8.5-10.1) Thyroid Stimulating Hormone (TSH) 123.840 uIU/mL (0.358-3.74) Free Thyroxine 0.77 ng/dL (0.76-1.46) Laboratory Tests Test 01/21/17 05:15 White Blood Count 4.9 x10^3/uL (4.0-11.0) Red Blood Count 4.46 x10^6/uL (3.50-5.40) Hemoglobin 13.2 g/dL (12.0-15.5) Hematocrit 39.1 % (36.0-47.0) Mean Corpuscular Volume 88 fL (79-100) Mean Corpuscular Hemoglobin 30 pg (25-35) Mean Corpuscular Hemoglobin Concent 34 g/dL (31-37) Red Cell Distribution Width 14.7 % (11.5-14.5) Platelet Count 204 x10^3/uL (140-400) Neutrophils (%) (Auto) 66 % (31-73) Lymphocytes (%) (Auto) 22 % (24-48) Monocytes (%) (Auto) 8 % (0-9) Eosinophils (%) (Auto) 3 % (0-3) Basophils (%) (Auto) 1 % (0-3) Neutrophils # (Auto) 3.2 x10^3uL (1.8-7.7) Lymphocytes # (Auto) 1.1 x10^3/uL (1.0-4.8) Monocytes # (Auto) 0.4 x10^3/uL (0.0-1.1) Eosinophils # (Auto) 0.2 x10^3/uL (0.0-0.7) Basophils # (Auto) 0.1 x10^3/uL (0.0-0.2) Sodium Level 139 mmol/L (136-145) Potassium Level 4.0 mmol/L (3.5-5.1) Chloride Level 103 mmol/L (98-107) Carbon Dioxide Level 31 mmol/L (21-32) Anion Gap 5 (6-14) Blood Urea Nitrogen 13 mg/dL (7-20) Creatinine 0.9 mg/dL (0.6-1.0) Estimated GFR (Cockcroft-Gault) 68.0 Glucose Level 98 mg/dL (70-99) Calcium Level 8.7 mg/dL (8.5-10.1) Thyroid Stimulating Hormone (TSH) 123.840 uIU/mL (0.358-3.74) Free Thyroxine 0.77 ng/dL (0.76-1.46) Medications Current Medications Sodium Chloride 1,000 ml @ 75 mls/hr [id number] IV Last administered on 10:35; Start 01/19/17 at 21:30; Stop 01/20/17 at 12:59; Status DC Hydromorphone HCl (Dilaudid) 2 mg PRN Q2HR PRN IV PAIN Last administered on 21:53; Start 01/19/17 at 21:00 Lorazepam (Ativan) 1 mg PRN Q4HRS PRN IV ANXIETY / AGITATION Last administered on 01/20/17 08:34; Start 01/19/17 at 21:00; Stop 01/20/17 at 09:57; Status DC Bisacodyl (Dulcolax Tab) 10 mg PRN DAILY PRN PO CONSTIPATION Last administered on 01/19/17 21:23; Start 01/19/17 at 21:00; Stop 01/20/17 at 09:42; Status DC Bisacodyl (Dulcolax Tab) 10 mg DAILY PO Last administered on 01/20/17 10:11; Start 01/20/17 at 09:45 Methylprednisolone Acetate (DEPO-Medrol 40MG VIAL) 40 mg 1X ONCE IM Last administered on 01/20/17 10:09; Start 01/20/17 at 09:30; Stop 01/20/17 at 09:44 ; Status DC Methylprednisolone Acetate (DEPO-Medrol 40MG VIAL) 40 mg 1X ONCE IM Last administered on 01/20/17 10:10; Start 01/20/17 at 09:30; Stop 01/20/17 at 09:44 ; Status DC Bupivacaine HCl (Sensorcaine-Mpf 0.25%) 10 ml 1X ONCE IJ Last administered on 01/20/17 10:10; Start 01/20/17 at 09:30; Stop 01/20/17 at 09:44; Status DC Bisacodyl (Dulcolax Supp) [address] CONSTIPATION; Start 01/20/17 at 09:30 Magnesium Citrate (Citroma) 296 ml PRN 1X PRN PO CONSTIPATION; Start 01/20/17 at 09:30 Docusate Sodium (Enemeez) [address] CONSTIPATION; Start 01/20/17 at 09:30 Ibuprofen (Motrin) 800 mg TID PO Last administered on 01/20/17 20:54; Start 01/20/17 at 14:00 Pantoprazole Sodium (Protonix) 40 mg DAILYAC PO Last administered on 01/20/17 10:11; Start 01/20/17 at 10:30 Levothyroxine Sodium (Synthroid) 150 mcg DAILY07 PO Last administered on 10:35; Start 01/20/17 at 11:00 Acetaminophen (Tylenol) 650 mg PRN Q6HRS PRN PO FEVER; Start 01/20/17 at 10:00 Ondansetron HCl (Zofran) 4 mg PRN Q6HRS PRN IV NAUSEA/VOMITING Last administered on 01/21/17 05:39; Start 01/20/17 at 10:00 Hydralazine HCl (Apresoline) 10 mg PRN Q4HRS PRN IVP ELEVATED BP, SEE COMMENTS ; Start 01/20/17 at 10:00 Docusate Sodium (Colace) 100 mg PRN DAILY PRN PO CONSTIPATION; Start 01/20/17 at 10:00 Tramadol HCl (Ultram) 100 mg PRN Q6HRS PRN PO PAIN Last administered on 17:38; Start 01/20/17 at 10:00 Senna/Docusate Sodium (Senna Plus) 1 tab BID PO Last administered on 01/20/17 20:53; Start 01/20/17 at 21:00 Docusate Sodium (Colace) 100 mg BID PO Last administered on 01/20/17 20:53; Start 01/20/17 at 11:00 Magnesium Hydroxide (Milk Of Magnesia) 2,400 mg BID PO Last administered on 20:54; Start 01/20/17 at 10:00 Lactulose 20 gm PRN Q12HR PRN PO CONSTIPATION; Start 01/20/17 at 10:00 Bisacodyl (Dulcolax Supp) [address] CONSTIPATION; Start 01/20/17 at 10:00; Status UNV Hydromorphone HCl (Dilaudid) 2 mg PRN Q4HRS PRN PO PAIN; Start 01/20/17 at 13: 00 Enoxaparin Sodium (Lovenox 40mg Syringe) 40 mg Q24H SQ Last administered on 16:03; Start 01/20/17 at 14:00 Alprazolam (Xanax) 0.25 mg PRN TID PRN PO ANXIETY / AGITATION; Start 01/20/17 at 17:00 Active Scripts Active Reported Levothyroxine Sodium 150 Mcg Tablet 1 Tab PO DAILY Levothyroxine Sodium 150 Mcg Tablet 1 Tab PO DAILY Vitals/I & O Vital Sign - Last 24 Hours 01/20/17 01/20/17 01/20/17 01/20/17 08:20 11:00 15:00 17:38 Temp 97.5 97.9 97.5 97.9 Pulse 68 55 Resp 16 16 B/P (MAP) 137/95 (109) 132/87 (102) Pulse Ox 99 97 O2 Delivery Room Air Room Air Room Air Nasal Cannula O2 Flow Rate 2.0 01/20/17 01/20/17 01/20/17 01/20/17 18:38 19:00 20:00 21:53 Temp 96.7 96.7 Pulse 69 Resp 16 18 16 B/P (MAP) 123/83 (96) Pulse Ox 98 98 98 O2 Delivery Room Air Room Air Room Air Room Air O2 Flow Rate 2.0 2.0 01/20/17 01/20/17 01/21/17 22:23 23:00 03:00 Temp 97.5 98.9 97.5 98.9 Pulse 68 60 Resp 16 18 18 B/P (MAP) 117/81 (93) 116/79 (91) Pulse Ox 98 99 96 O2 Delivery Room Air Room Air Room Air CLEMENCIA BEAR MD Jan 21, 2017 07:49
[2017-01-21] MEDS: ALPRAZolam 0.25 MG TABLET PO PRN ×2 (09:29→16:27)
[2017-01-21] MEDS: IBUPROFEN 800 MG TABLET. PO SCH ×3 (09:29→21:35)
[2017-01-21] MEDS: LEVOTHYROXINE 150 MCG TABLET PO SCH (09:30)
[2017-01-21] MEDS: SENNOSIDES/DOCUSATE 8.6/50MG TABLET. PO SCH ×2 (09:30→19:47)
[2017-01-21] MEDS: BISACODYL 5 MG TABLET.DR. PO SCH (09:30)
[2017-01-21] MEDS: DOCUSATE SODIUM 100 MG CAPSULE. PO SCH ×2 (09:30→19:46)
[2017-01-21] MEDS: PANTOPRAZOLE 40 MG TABLET.DR. PO SCH (09:30)
[2017-01-21] MEDS: MAGNESIUM HYDROXIDE 2,400 MG/30 ML ORAL.SUSP. PO SCH ×2 (09:31→19:47)
[2017-01-21 11:00] VITALS: BP 123/90
--- NOTE | 2017-01-21 12:05 | RAD ---
EXAMINATION: Magnetic resonance imaging (MRI) of the lumbar spine without contrast HISTORY: Low back pain in 7 months of right leg radiculopathy. TECHNIQUE: Multiplanar multi-weighted MRI of the lumbar spine was performed without intravenous contrast using the standard lumbar spine protocol. Contrast information: None administered COMPARISON: MRI lumbar spine September 24, 2016 FINDINGS: The alignment of the lumbar spine is normal. There is a superior endplate Schmorl's node involving S1. There are no compression fractures. The conus medullaris terminates at the level of L1-L2. The distal spinal cord signal intensity is normal. Mild disc desiccation at L5-S1. No annular fissures are identified. Limited views of the abdomen and pelvis show no soft tissue abnormality. The aorta is normal. L2-L3: The disc is normal in configuration. There is no facet arthropathy. There is no neuroforaminal stenosis. There is no spinal canal stenosis. L3-L4: The disc is normal in configuration. There is no facet arthropathy. There is no neuroforaminal stenosis. There is no spinal canal stenosis. L4-L5: The disc is normal in configuration. There is mild facet arthropathy. There is no neuroforaminal stenosis. There is no spinal canal stenosis. L5-S1: The disc is normal in configuration. There is moderate facet arthropathy. There is no neuroforaminal stenosis. There is no spinal canal stenosis. IMPRESSION: 1. There is a superior endplate Schmorl's node involving S1. Findings appear slightly evolved since September 24, 2016. 2. Mild disc desiccation at L5-S1. No significant neuroforaminal or spinal canal stenosis. Electronically signed by: Shanna Valdes MD (01/21/2017 12:01 PM) [id number]
[2017-01-21] MEDS: traMADol 50 MG TABLET PO PRN (12:41)
[2017-01-21] MEDS: ENOXAPARIN 40 MG/0.4 ML SYRINGE. SQ SCH (14:00)
--- NOTE | 2017-01-21 14:32 | PDOC ---
PROGRESS NOTES Chief Complaint Chief Complaint worsening chronic lower back pain 2/2 muscle sprain vs. sciatica constipation hypothyroidism, uncontrolled plan: fu with , steroid injection today, MRI done cont synthroid, increase to 175mcg daily check tsh ,t4 pain control, add dilaudid po dvt ppx add stool softner. KUB done showed stool post steroid injection by dr. Chavez 01/20 History of Present Illness History of Present Illness ros: NO fever, chills, sob or chest pain c/p back pain, no improvement post steroid injection still c/o right leg weakness, which is chronic no bm X2 weeks some hypthyroidism symptoms Vitals Vitals Vital Signs Date Time Temp Pulse Resp B/P (MAP) Pulse Ox O2 Delivery O2 Flow Rate FiO2 01/21/17 12:41 100 Room Air 01/21/17 11:00 97.5 68 18 123/90 (101) 97.5 01/20/17 20:00 2.0 Physical Exam General: Alert, Oriented X3, Cooperative Heart: Regular rate, Normal S1, Normal S2 Lungs: Clear Abdomen: Normal bowel sounds, Soft Extremities: No clubbing, No cyanosis Skin: No rashes Labs LABS Laboratory Tests Test 01/21/17 05:15 White Blood Count 4.9 x10^3/uL (4.0-11.0) Red Blood Count 4.46 x10^6/uL (3.50-5.40) Hemoglobin 13.2 g/dL (12.0-15.5) Hematocrit 39.1 % (36.0-47.0) Mean Corpuscular Volume 88 fL (79-100) Mean Corpuscular Hemoglobin 30 pg (25-35) Mean Corpuscular Hemoglobin Concent 34 g/dL (31-37) Red Cell Distribution Width 14.7 % (11.5-14.5) Platelet Count 204 x10^3/uL (140-400) Neutrophils (%) (Auto) 66 % (31-73) Lymphocytes (%) (Auto) 22 % (24-48) Monocytes (%) (Auto) 8 % (0-9) Eosinophils (%) (Auto) 3 % (0-3) Basophils (%) (Auto) 1 % (0-3) Neutrophils # (Auto) 3.2 x10^3uL (1.8-7.7) Lymphocytes # (Auto) 1.1 x10^3/uL (1.0-4.8) Monocytes # (Auto) 0.4 x10^3/uL (0.0-1.1) Eosinophils # (Auto) 0.2 x10^3/uL (0.0-0.7) Basophils # (Auto) 0.1 x10^3/uL (0.0-0.2) Sodium Level 139 mmol/L (136-145) Potassium Level 4.0 mmol/L (3.5-5.1) Chloride Level 103 mmol/L (98-107) Carbon Dioxide Level 31 mmol/L (21-32) Anion Gap 5 (6-14) Blood Urea Nitrogen 13 mg/dL (7-20) Creatinine 0.9 mg/dL (0.6-1.0) Estimated GFR (Cockcroft-Gault) 68.0 Glucose Level 98 mg/dL (70-99) Calcium Level 8.7 mg/dL (8.5-10.1) Thyroid Stimulating Hormone (TSH) 123.840 uIU/mL (0.358-3.74) Free Thyroxine 0.77 ng/dL (0.76-1.46) Comment Review of Relevant I have reviewed the following items kayla (where applicable) has been applied. Labs Laboratory Tests Test 01/20/17 04:37 01/21/17 05:15 White Blood Count 6.1 x10^3/uL (4.0-11.0) 4.9 x10^3/uL (4.0-11.0) Red Blood Count 4.43 x10^6/uL (3.50-5.40) 4.46 x10^6/uL (3.50-5.40) Hemoglobin 12.9 g/dL (12.0-15.5) 13.2 g/dL (12.0-15.5) Hematocrit 39.8 % (36.0-47.0) 39.1 % (36.0-47.0) Mean Corpuscular Volume 90 fL (79-100) 88 fL (79-100) Mean Corpuscular Hemoglobin 29 pg (25-35) 30 pg (25-35) Mean Corpuscular Hemoglobin Concent 33 g/dL (31-37) 34 g/dL (31-37) Red Cell Distribution Width 14.7 % (11.5-14.5) 14.7 % (11.5-14.5) Platelet Count 169 x10^3/uL (140-400) 204 x10^3/uL (140-400) Neutrophils (%) (Auto) 62 % (31-73) 66 % (31-73) Lymphocytes (%) (Auto) 25 % (24-48) 22 % (24-48) Monocytes (%) (Auto) 7 % (0-9) 8 % (0-9) Eosinophils (%) (Auto) 5 % (0-3) 3 % (0-3) Basophils (%) (Auto) 1 % (0-3) 1 % (0-3) Neutrophils # (Auto) 3.7 x10^3uL (1.8-7.7) 3.2 x10^3uL (1.8-7.7) Lymphocytes # (Auto) 1.5 x10^3/uL (1.0-4.8) 1.1 x10^3/uL (1.0-4.8) Monocytes # (Auto) 0.4 x10^3/uL (0.0-1.1) 0.4 x10^3/uL (0.0-1.1) Eosinophils # (Auto) 0.3 x10^3/uL (0.0-0.7) 0.2 x10^3/uL (0.0-0.7) Basophils # (Auto) 0.1 x10^3/uL (0.0-0.2) 0.1 x10^3/uL (0.0-0.2) Sodium Level 139 mmol/L (136-145) 139 mmol/L (136-145) Potassium Level 4.2 mmol/L (3.5-5.1) 4.0 mmol/L (3.5-5.1) Chloride Level 105 mmol/L (98-107) 103 mmol/L (98-107) Carbon Dioxide Level 24 mmol/L (21-32) 31 mmol/L (21-32) Anion Gap 10 (6-14) 5 (6-14) Blood Urea Nitrogen 12 mg/dL (7-20) 13 mg/dL (7-20) Creatinine 0.9 mg/dL (0.6-1.0) 0.9 mg/dL (0.6-1.0) Estimated GFR (Cockcroft-Gault) 68.0 68.0 Glucose Level 87 mg/dL (70-99) 98 mg/dL (70-99) Calcium Level 8.7 mg/dL (8.5-10.1) 8.7 mg/dL (8.5-10.1) Thyroid Stimulating Hormone (TSH) 123.840 uIU/mL (0.358-3.74) Free Thyroxine 0.77 ng/dL (0.76-1.46) Laboratory Tests Test 01/21/17 05:15 White Blood Count 4.9 x10^3/uL (4.0-11.0) Red Blood Count 4.46 x10^6/uL (3.50-5.40) Hemoglobin 13.2 g/dL (12.0-15.5) Hematocrit 39.1 % (36.0-47.0) Mean Corpuscular Volume 88 fL (79-100) Mean Corpuscular Hemoglobin 30 pg (25-35) Mean Corpuscular Hemoglobin Concent 34 g/dL (31-37) Red Cell Distribution Width 14.7 % (11.5-14.5) Platelet Count 204 x10^3/uL (140-400) Neutrophils (%) (Auto) 66 % (31-73) Lymphocytes (%) (Auto) 22 % (24-48) Monocytes (%) (Auto) 8 % (0-9) Eosinophils (%) (Auto) 3 % (0-3) Basophils (%) (Auto) 1 % (0-3) Neutrophils # (Auto) 3.2 x10^3uL (1.8-7.7) Lymphocytes # (Auto) 1.1 x10^3/uL (1.0-4.8) Monocytes # (Auto) 0.4 x10^3/uL (0.0-1.1) Eosinophils # (Auto) 0.2 x10^3/uL (0.0-0.7) Basophils # (Auto) 0.1 x10^3/uL (0.0-0.2) Sodium Level 139 mmol/L (136-145) Potassium Level 4.0 mmol/L (3.5-5.1) Chloride Level 103 mmol/L (98-107) Carbon Dioxide Level 31 mmol/L (21-32) Anion Gap 5 (6-14) Blood Urea Nitrogen 13 mg/dL (7-20) Creatinine 0.9 mg/dL (0.6-1.0) Estimated GFR (Cockcroft-Gault) 68.0 Glucose Level 98 mg/dL (70-99) Calcium Level 8.7 mg/dL (8.5-10.1) Thyroid Stimulating Hormone (TSH) 123.840 uIU/mL (0.358-3.74) Free Thyroxine 0.77 ng/dL (0.76-1.46) Medications Current Medications Sodium Chloride 1,000 ml @ 75 mls/hr [id number] IV Last administered on 10:35; Start 01/19/17 at 21:30; Stop 01/20/17 at 12:59; Status DC Hydromorphone HCl (Dilaudid) 2 mg PRN Q2HR PRN IV PAIN Last administered on 21:53; Start 01/19/17 at 21:00 Lorazepam (Ativan) 1 mg PRN Q4HRS PRN IV ANXIETY / AGITATION Last administered on 01/20/17 08:34; Start 01/19/17 at 21:00; Stop 01/20/17 at 09:57; Status DC Bisacodyl (Dulcolax Tab) 10 mg PRN DAILY PRN PO CONSTIPATION Last administered on 01/19/17 21:23; Start 01/19/17 at 21:00; Stop 01/20/17 at 09:42; Status DC Bisacodyl (Dulcolax Tab) 10 mg DAILY PO Last administered on 01/21/17 09:30; Start 01/20/17 at 09:45 Methylprednisolone Acetate (DEPO-Medrol 40MG VIAL) 40 mg 1X ONCE IM Last administered on 01/20/17 10:09; Start 01/20/17 at 09:30; Stop 01/20/17 at 09:44 ; Status DC Methylprednisolone Acetate (DEPO-Medrol 40MG VIAL) 40 mg 1X ONCE IM Last administered on 01/20/17 10:10; Start 01/20/17 at 09:30; Stop 01/20/17 at 09:44 ; Status DC Bupivacaine HCl (Sensorcaine-Mpf 0.25%) 10 ml 1X ONCE IJ Last administered on 01/20/17 10:10; Start 01/20/17 at 09:30; Stop 01/20/17 at 09:44; Status DC Bisacodyl (Dulcolax Supp) 10 mg PRN DAILY PRN [place] CONSTIPATION; Start 01/20/17 at 09:30 Magnesium Citrate (Citroma) 296 ml PRN 1X PRN PO CONSTIPATION; Start 01/20/17 at 09:30 Docusate Sodium (Enemeez) 283 mg PRN DAILY PRN [place] CONSTIPATION; Start 01/20/17 at 09:30 Ibuprofen (Motrin) 800 mg TID PO Last administered on 01/21/17 09:29; Start 01/20/17 at 14:00 Pantoprazole Sodium (Protonix) 40 mg DAILYAC PO Last administered on 01/21/17 09:30; Start 01/20/17 at 10:30 Levothyroxine Sodium (Synthroid) 150 mcg DAILY07 PO Last administered on 09:30; Start 01/20/17 at 11:00; Stop 01/21/17 at 11:07; Status DC Acetaminophen (Tylenol) 650 mg PRN Q6HRS PRN PO FEVER; Start 01/20/17 at 10:00 Ondansetron HCl (Zofran) 4 mg PRN Q6HRS PRN IV NAUSEA/VOMITING Last administered on 01/21/17 05:39; Start 01/20/17 at 10:00 Hydralazine HCl (Apresoline) 10 mg PRN Q4HRS PRN IVP ELEVATED BP, SEE COMMENTS ; Start 01/20/17 at 10:00 Docusate Sodium (Colace) 100 mg PRN DAILY PRN PO CONSTIPATION; Start 01/20/17 at 10:00 Tramadol HCl (Ultram) 100 mg PRN Q6HRS PRN PO PAIN Last administered on 12:41; Start 01/20/17 at 10:00 Senna/Docusate Sodium (Senna Plus) 1 tab BID PO Last administered on 01/21/17 09:30; Start 01/20/17 at 21:00 Docusate Sodium (Colace) 100 mg BID PO Last administered on 01/21/17 09:30; Start 01/20/17 at 11:00 Magnesium Hydroxide (Milk Of Magnesia) 2,400 mg BID PO Last administered on 09:31; Start 01/20/17 at 10:00 Lactulose 20 gm PRN Q12HR PRN PO CONSTIPATION; Start 01/20/17 at 10:00 Bisacodyl (Dulcolax Supp) 10 mg PRN DAILY PRN [place] CONSTIPATION; Start 01/20/17 at 10:00; Status UNV Hydromorphone HCl (Dilaudid) 2 mg PRN Q4HRS PRN PO PAIN; Start 01/20/17 at 13: 00 Enoxaparin Sodium (Lovenox 40mg Syringe) 40 mg Q24H SQ Last administered on 16:03; Start 01/20/17 at 14:00 Alprazolam (Xanax) 0.25 mg PRN TID PRN PO ANXIETY / AGITATION Last administered on 01/21/17 09:29; Start 01/20/17 at 17:00 Levothyroxine Sodium (Synthroid) 175 mcg DAILY07 PO ; Start 01/22/17 at 07:00 Active Scripts Active Reported Levothyroxine Sodium 150 Mcg Tablet 1 Tab PO DAILY Levothyroxine Sodium 150 Mcg Tablet 1 Tab PO DAILY Vitals/I & O Vital Sign - Last 24 Hours 01/20/17 01/20/17 01/20/17 01/20/17 15:00 17:38 18:38 19:00 Temp 97.9 96.7 97.9 96.7 Pulse 55 69 Resp 16 16 18 B/P (MAP) 132/87 (102) 123/83 (96) Pulse Ox 97 98 98 O2 Delivery Room Air Nasal Cannula Room Air Room Air O2 Flow Rate 2.0 2.0 01/20/17 01/20/17 01/20/17 01/20/17 20:00 21:53 22:23 23:00 Temp 97.5 97.5 Pulse 68 Resp 16 16 18 B/P (MAP) 117/81 (93) Pulse Ox 98 98 99 O2 Delivery Room Air Room Air Room Air Room Air O2 Flow Rate 2.0 01/21/17 01/21/17 01/21/17 01/21/17 03:00 07:00 11:00 12:41 Temp 98.9 96.8 97.5 98.9 96.8 97.5 Pulse 60 65 68 Resp 18 18 18 B/P (MAP) 116/79 (91) 130/83 (99) 123/90 (101) Pulse Ox 96 100 100 100 O2 Delivery Room Air Room Air Room Air Room Air ALTHEA CRUZ MD Jan 21, 2017 14:32
[2017-01-21 15:00] VITALS: BP 127/88
[2017-01-21] MEDS: POLYETHYLENE GLYCOL 3350 17 GM PACKET. PO SCH (15:00)
--- NOTE | 2017-01-21 15:15 | PDOC ---
Provider Note Provider Note Attempted to see patient in MRI Lumbar MRI reviewed- unchanged from previous study. Degenerative changes seen. No significant central canal or neural foraminal narrowing. Do not see a surgical problem. Recommend Pain Clinic consult and could f/u with me as an OP if needed. Call with questions. SHELLI VARGAS MD Jan 21, 2017 15:15
[2017-01-21 19:00] VITALS: BP 114/82
[2017-01-21 23:00] VITALS: BP 115/77
[2017-01-22] MEDS: LEVOTHYROXINE 175 MCG TABLET PO SCH (06:45)
[2017-01-22] MEDS: PANTOPRAZOLE 40 MG TABLET.DR. PO SCH (06:45)
[2017-01-22 07:00] VITALS: BP 123/91
[2017-01-22] MEDS: SENNOSIDES/DOCUSATE 8.6/50MG TABLET. PO SCH ×2 (09:00→20:37)
[2017-01-22] MEDS: BISACODYL 5 MG TABLET.DR. PO SCH (09:00)
[2017-01-22] MEDS: DOCUSATE SODIUM 100 MG CAPSULE. PO SCH ×2 (09:00→20:37)
[2017-01-22] MEDS: MAGNESIUM HYDROXIDE 2,400 MG/30 ML ORAL.SUSP. PO SCH ×2 (09:00→20:36)
[2017-01-22] MEDS: POLYETHYLENE GLYCOL 3350 17 GM PACKET. PO SCH (09:00)
[2017-01-22] MEDS: IBUPROFEN 800 MG TABLET. PO SCH ×3 (09:42→20:38)
[2017-01-22] MEDS: HYDROmorphone 2 MG TABLET PO PRN ×3 (09:54→20:38)
[2017-01-22 11:00] VITALS: BP 128/83
--- NOTE | 2017-01-22 13:58 | PDOC ---
PROGRESS NOTES Chief Complaint Chief Complaint worsening chronic lower back pain 2/2 muscle sprain vs. sciatica ASSESSMENT AND PLAN: 1. Acute on chronic LBP: MRI essentially unchanged. not a surgical issue. s/ p steroid injection 12/23. F/U with , 2. Pain control: ok with narcotics, but pt does not want chronic narcotics a an option. 3. Hypothyroidism: TSH 124 (!). cont synthroid, increased to 175mcg daily. O /P F/U in 1 month 4. Constipation: prob 2/2 narcotics. bowel regimen 5. DVT prophylaxis History of Present Illness History of Present Illness sx unchanged, although she is sitting comfortably in bed, legs crossed Vitals Vitals Vital Signs Date Time Temp Pulse Resp B/P (MAP) Pulse Ox O2 Delivery O2 Flow Rate FiO2 01/22/17 11:00 97.9 65 16 128/83 (98) 99 Room Air 97.9 01/22/17 10:54 2.0 Physical Exam General: Alert, Oriented X3, Cooperative, No acute distress Heart: Regular rate Lungs: Clear Abdomen: Normal bowel sounds, Soft Extremities: No clubbing Skin: No rashes ALFA BATRES MD Jan 22, 2017 13:57
[2017-01-22 15:00] VITALS: BP 124/86
[2017-01-22] MEDS: ALPRAZolam 0.25 MG TABLET PO PRN (15:35)
[2017-01-22] MEDS: ENOXAPARIN 40 MG/0.4 ML SYRINGE. SQ SCH (15:36)
[2017-01-22 19:40] VITALS: BP 133/96
[2017-01-22 23:59] VITALS: BP 123/73
[2017-01-23 03:59] VITALS: BP 114/72
[2017-01-23] MEDS: HYDROmorphone 2 MG TABLET PO PRN (06:48)
[2017-01-23] MEDS: LEVOTHYROXINE 175 MCG TABLET PO SCH (06:48)
[2017-01-23 07:00] VITALS: BP 131/95
[2017-01-23] MEDS: BISACODYL 5 MG TABLET.DR. PO SCH (10:12)
[2017-01-23] MEDS: MAGNESIUM HYDROXIDE 2,400 MG/30 ML ORAL.SUSP. PO SCH ×2 (10:12→21:06)
[2017-01-23] MEDS: PANTOPRAZOLE 40 MG TABLET.DR. PO SCH (10:12)
[2017-01-23] MEDS: IBUPROFEN 800 MG TABLET. PO SCH ×3 (10:13→21:06)
[2017-01-23] MEDS: SENNOSIDES/DOCUSATE 8.6/50MG TABLET. PO SCH ×2 (10:13→21:06)
[2017-01-23] MEDS: DOCUSATE SODIUM 100 MG CAPSULE. PO SCH ×2 (10:14→21:06)
[2017-01-23] MEDS: POLYETHYLENE GLYCOL 3350 17 GM PACKET. PO SCH (10:14)
[2017-01-23 11:00] VITALS: BP 127/95
[2017-01-23] MEDS: ENOXAPARIN 40 MG/0.4 ML SYRINGE. SQ SCH (14:41)
[2017-01-23] MEDS: ALPRAZolam 0.25 MG TABLET PO PRN (14:42)
[2017-01-23] MEDS: HYDROmorphone 2 MG/ML VIAL IV PRN ×2 (14:42→21:07)
[2017-01-23 15:00] VITALS: BP 135/98
[2017-01-23 19:00] VITALS: BP 134/97
[2017-01-23] MEDS: ONDANSETRON PF 4 MG/2 ML VIAL. IV PRN (22:11)
[2017-01-23 23:00] VITALS: BP 134/88
[2017-01-24 03:00] VITALS: BP 145/92
[2017-01-24] MEDS: HYDROmorphone 2 MG/ML VIAL IV PRN ×3 (06:36→21:31)
[2017-01-24 07:00] VITALS: BP 127/84
[2017-01-24] MEDS: IBUPROFEN 800 MG TABLET. PO SCH ×3 (08:31→21:00)
[2017-01-24] MEDS: PANTOPRAZOLE 40 MG TABLET.DR. PO SCH (08:31)
[2017-01-24] MEDS: LEVOTHYROXINE 175 MCG TABLET PO SCH (08:31)
[2017-01-24] MEDS: POLYETHYLENE GLYCOL 3350 17 GM PACKET. PO SCH (08:32)
[2017-01-24] MEDS: DOCUSATE SODIUM 100 MG CAPSULE. PO SCH ×2 (08:32→21:00)
[2017-01-24] MEDS: MAGNESIUM HYDROXIDE 2,400 MG/30 ML ORAL.SUSP. PO SCH ×2 (08:33→21:00)
[2017-01-24] MEDS: SENNOSIDES/DOCUSATE 8.6/50MG TABLET. PO SCH ×2 (08:33→21:00)
[2017-01-24] MEDS: BISACODYL 5 MG TABLET.DR. PO SCH (08:33)
[2017-01-24 11:00] VITALS: BP 119/84
--- NOTE | 2017-01-24 11:12 | PDOC ---
PROGRESS NOTES Chief Complaint Chief Complaint worsening chronic lower back pain 2/2 muscle sprain vs. sciatica ASSESSMENT AND PLAN: 1. Acute on chronic LBP: MRI essentially unchanged. not a surgical issue. s/ p steroid injection 12/23. F/U with , 2. Pain control: ok with narcotics, but pt does not want chronic narcotics a an option. 3. Hypothyroidism: TSH 124 (!). cont synthroid, increased to 175mcg daily. O /P F/U in 1 month 4. Constipation: prob 2/2 narcotics. bowel regimen 5. DVT prophylaxis History of Present Illness History of Present Illness considering epidural, can walk a little sx unchanged, can walk w. walker, Vitals Vitals Vital Signs Date Time Temp Pulse Resp B/P (MAP) Pulse Ox O2 Delivery O2 Flow Rate FiO2 01/24/17 07:30 98 Room Air 01/24/17 07:00 97.5 65 16 127/84 (98) 97.5 Physical Exam General: Alert, Oriented X3, Cooperative, No acute distress Heart: Regular rate Lungs: Clear Abdomen: Normal bowel sounds, Soft Extremities: No clubbing Skin: No rashes Review of Systems Review of Systems back pain, anxiety, upset about situation, has adjustment disorder Comment Review of Relevant I have reviewed the following items kayla (where applicable) has been applied. Medications Current Medications Sodium Chloride 1,000 ml @ 75 mls/hr [id number] IV Last administered on 10:35; Start 01/19/17 at 21:30; Stop 01/20/17 at 12:59; Status DC Hydromorphone HCl (Dilaudid) 2 mg PRN Q2HR PRN IV PAIN Last administered on 06:36; Start 01/19/17 at 21:00 Lorazepam (Ativan) 1 mg PRN Q4HRS PRN IV ANXIETY / AGITATION Last administered on 01/20/17 08:34; Start 01/19/17 at 21:00; Stop 01/20/17 at 09:57; Status DC Bisacodyl (Dulcolax Tab) 10 mg PRN DAILY PRN PO CONSTIPATION Last administered on 01/19/17 21:23; Start 01/19/17 at 21:00; Stop 01/20/17 at 09:42; Status DC Bisacodyl (Dulcolax Tab) 10 mg DAILY PO Last administered on 01/23/17 10:12; Start 01/20/17 at 09:45 Methylprednisolone Acetate (DEPO-Medrol 40MG VIAL) 40 mg 1X ONCE IM Last administered on 01/20/17 10:09; Start 01/20/17 at 09:30; Stop 01/20/17 at 09:44 ; Status DC Methylprednisolone Acetate (DEPO-Medrol 40MG VIAL) 40 mg 1X ONCE IM Last administered on 01/20/17 10:10; Start 01/20/17 at 09:30; Stop 01/20/17 at 09:44 ; Status DC Bupivacaine HCl (Sensorcaine-Mpf 0.25%) 10 ml 1X ONCE IJ Last administered on 01/20/17 10:10; Start 01/20/17 at 09:30; Stop 01/20/17 at 09:44; Status DC Bisacodyl (Dulcolax Supp) 10 mg PRN DAILY PRN [place] CONSTIPATION; Start 01/20/17 at 09:30 Magnesium Citrate (Citroma) 296 ml PRN 1X PRN PO CONSTIPATION; Start 01/20/17 at 09:30 Docusate Sodium (Enemeez) 283 mg PRN DAILY PRN CO CONSTIPATION; Start 01/20/17 at 09:30 Ibuprofen (Motrin) 800 mg TID PO Last administered on 01/24/17 08:31; Start 01/20/17 at 14:00 Pantoprazole Sodium (Protonix) 40 mg DAILYAC PO Last administered on 01/24/17 08:31; Start 01/20/17 at 10:30 Levothyroxine Sodium (Synthroid) 150 mcg DAILY07 PO Last administered on 09:30; Start 01/20/17 at 11:00; Stop 01/21/17 at 11:07; Status DC Acetaminophen (Tylenol) 650 mg PRN Q6HRS PRN PO FEVER; Start 01/20/17 at 10:00 Ondansetron HCl (Zofran) 4 mg PRN Q6HRS PRN IV NAUSEA/VOMITING Last administered on 01/23/17 22:11; Start 01/20/17 at 10:00 Hydralazine HCl (Apresoline) 10 mg PRN Q4HRS PRN IVP ELEVATED BP, SEE COMMENTS ; Start 01/20/17 at 10:00 Docusate Sodium (Colace) 100 mg PRN DAILY PRN PO CONSTIPATION; Start 01/20/17 at 10:00 Tramadol HCl (Ultram) 100 mg PRN Q6HRS PRN PO PAIN Last administered on 12:41; Start 01/20/17 at 10:00 Senna/Docusate Sodium (Senna Plus) 1 tab BID PO Last administered on 01/23/17 21:06; Start 01/20/17 at 21:00 Docusate Sodium (Colace) 100 mg BID PO Last administered on 01/24/17 08:32; Start 01/20/17 at 11:00 Magnesium Hydroxide (Milk Of Magnesia) 2,400 mg BID PO Last administered on 21:06; Start 01/20/17 at 10:00 Lactulose 20 gm PRN Q12HR PRN PO CONSTIPATION; Start 01/20/17 at 10:00 Bisacodyl (Dulcolax Supp) 10 mg PRN DAILY PRN CO CONSTIPATION; Start 01/20/17 at 10:00; Status UNV Hydromorphone HCl (Dilaudid) 2 mg PRN Q4HRS PRN PO PAIN Last administered on 06:48; Start 01/20/17 at 13:00 Enoxaparin Sodium (Lovenox 40mg Syringe) 40 mg Q24H SQ Last administered on 14:41; Start 01/20/17 at 14:00 Alprazolam (Xanax) 0.25 mg PRN TID PRN PO ANXIETY / AGITATION Last administered on 01/23/17 14:42; Start 01/20/17 at 17:00 Levothyroxine Sodium (Synthroid) 175 mcg DAILY07 PO Last administered on 08:31; Start 01/22/17 at 07:00 Polyethylene Glycol (miraLAX PACKET) 17 gm DAILY PO Last administered on 10:14; Start 01/21/17 at 15:00 Active Scripts Active Reported Levothyroxine Sodium 150 Mcg Tablet 1 Tab PO DAILY Levothyroxine Sodium 150 Mcg Tablet 1 Tab PO DAILY Vitals/I & O Vital Sign - Last 24 Hours 01/23/17 01/23/17 01/23/17 01/23/17 14:42 15:00 19:00 21:07 Temp 97.7 97.9 97.7 97.9 Pulse 67 64 Resp 20 18 18 16 B/P (MAP) 135/98 (110) 134/97 (109) Pulse Ox 93 100 O2 Delivery Room Air Room Air Room Air Room Air 01/23/17 01/23/17 01/24/17 01/24/17 21:39 23:00 03:00 06:36 Temp 97.5 97.5 97.5 97.5 Pulse 69 60 Resp 18 20 18 18 B/P (MAP) 134/88 (103) 145/92 (109) Pulse Ox 99 98 O2 Delivery Room Air Room Air Room Air 01/24/17 01/24/17 07:00 07:30 Temp 97.5 97.5 Pulse 65 Resp 16 B/P (MAP) 127/84 (98) Pulse Ox 98 98 O2 Delivery Room Air Room Air IRENA KO MD Jan 24, 2017 11:12
--- NOTE | 2017-01-24 14:54 | PDOC ---
PROGRESS NOTES Assessment Assessment IMPRESSION: Back pain. Right leg pain. Obesity. Hypothyroidism. No evidence of cord etiology, radiculopathy, nerve impingement per L-spine MRI at the present time. RECOMMENDATIONS/PLAN: Pain control. Consulted Dr. Chavez. Treat hypothyroidism per f[facility]oe team. OT/PT. Past Medical History Heme/Onc: Anemia NOS Psych: Anxiety, Depression Musculoskeletal: low back pain Renal/: UTI, Other (polycystic ovarian syndrome, endometriosis, nephrolithiasis) Endocrine: Hypothyroidism Past Surgical History , Tonsillectomy, Other (thyroidectomy, several D and C's) Family History Arthritis Social History Single, stressed out at work and at home, one child is disabled, no tobacco or alcohol ALLERGY: Reviewed. MEDICATIONS: Refer to MAR REVIEW OF SYSTEMS: Constitutional: No malnutrition, weight loss, cachexia. Head: No traumatic brain or head injury. Skin: No edema, or rash. Ear: No infection.. Eyes: No vision loss, or diplopia. Nose: No bleeding or purulent discharges. Hearing: No hearing decrease. Neck: No injury. Breast: No history of cancer, masses, or discharges. Cardiac: No DC, arrhythmia Pulmonary: No COPD. GI: No GI Ulcer, GI bleeding Urinary/genital: UTI. Endocrine: [id number], obesity. Skeletomuscular: No muscular atrophy, deformity. Neurological: see HP. Psychiatric: Denies drug use/abuse. Otherwise, not [id number] review of systems. PHYSICAL EXAMINATION: General appearance in no acute distress. HEENT: Normocephalic and nontraumatic. Eyes, nose, ears, and throat are unremarkable. Neck is supple. No lymphadenopathy. No bruits are heard over the carotid artery. No Crepitus. Cardiovascular: S1, S2, regular rate and rhythm. Pulmonary: Clear to auscultation bilaterally. Abdomen: Bowel sounds are positive. Abdomen is soft, nontender, and nondistended. Extremities: No rash, lesions, or edema. No restriction of range of motion NEUROLOGICAL EXAMINATION: Alert. Oriented to time, place and person. PERRL. EOMI. CN: no focal findings. Muscle tone: within normal. Muscle strength: 5 DTR: 2 Plantar reflex: Flexor response bilaterally Gait: not examined in bed. Sensory exam: no abnormal findings. No cerebellar signs elicited. F-T-N test accurate. Objective Objective Vital Signs Date Time Temp Pulse Resp B/P (MAP) Pulse Ox O2 Delivery O2 Flow Rate FiO2 01/24/17 11:00 97.5 63 16 119/84 (96) 95 Room Air 97.5 Vitals Signs Vitals VS - Last 72 Hours, by Label Date Time Temp Pulse Resp B/P (MAP) Pulse Ox O2 Delivery O2 Flow Rate FiO2 01/24/17 11:00 97.5 63 16 119/84 (96) 95 Room Air 97.5 01/24/17 08:05 Room Air 01/24/17 07:30 98 Room Air 01/24/17 07:00 97.5 65 16 127/84 (98) 98 Room Air 97.5 01/24/17 06:36 18 Room Air 01/24/17 03:00 97.5 60 18 145/92 (109) 98 Room Air 97.5 01/23/17 23:00 97.5 69 20 134/88 (103) 99 Room Air 97.5 01/23/17 21:39 18 01/23/17 21:07 16 Room Air 01/23/17 19:00 97.9 64 18 134/97 (109) 100 Room Air 97.9 01/23/17 15:00 97.7 67 18 135/98 (110) 93 Room Air 97.7 01/23/17 14:42 20 Room Air 01/23/17 11:00 97.7 62 18 127/95 (106) 100 Room Air 97.7 01/23/17 08:00 Room Air 01/23/17 07:48 20 Room Air 01/23/17 07:00 97.5 63 18 131/95 (107) 97 Room Air 97.5 Comment Review of Relevant I have reviewed the following items kayla (where applicable) has been applied. PARAG DIOR MD Jan 24, 2017 14:54
[2017-01-24 15:00] VITALS: BP 142/104
--- NOTE | 2017-01-24 15:10 | PDOC ---
PROGRESS NOTES Subjective Subjective She admits continued low back pain and right hip pain. Objective Objective Vital Signs Date Time Temp Pulse Resp B/P (MAP) Pulse Ox O2 Delivery O2 Flow Rate FiO2 01/24/17 11:00 97.5 63 16 119/84 (96) 95 Room Air 97.5 01/23/17 06:48 2.0 Physical Exam Physical Exam She is alert and in no acute distress but continues with tenderness to palpation over right sacroiliac joint and no change noted with her neurological examination>she needs help with donning and doffing back support and once on she can get around without any difficulty using roller walker. Plan Plan of Care I have again reviewed with her home exercises and to consider lumbar CHICHI and home with out patient follow up when medically stable. Comment Review of Relevant I have reviewed the following items kayla (where applicable) has been applied. Medications Current Medications Sodium Chloride 1,000 ml @ 75 mls/hr [id number] IV Last administered on 10:35; Start 01/19/17 at 21:30; Stop 01/20/17 at 12:59; Status DC Hydromorphone HCl (Dilaudid) 2 mg PRN Q2HR PRN IV PAIN Last administered on 06:36; Start 01/19/17 at 21:00 Lorazepam (Ativan) 1 mg PRN Q4HRS PRN IV ANXIETY / AGITATION Last administered on 01/20/17 08:34; Start 01/19/17 at 21:00; Stop 01/20/17 at 09:57; Status DC Bisacodyl (Dulcolax Tab) 10 mg PRN DAILY PRN PO CONSTIPATION Last administered on 01/19/17 21:23; Start 01/19/17 at 21:00; Stop 01/20/17 at 09:42; Status DC Bisacodyl (Dulcolax Tab) 10 mg DAILY PO Last administered on 01/23/17 10:12; Start 01/20/17 at 09:45 Methylprednisolone Acetate (DEPO-Medrol 40MG VIAL) 40 mg 1X ONCE IM Last administered on 01/20/17 10:09; Start 01/20/17 at 09:30; Stop 01/20/17 at 09:44 ; Status DC Methylprednisolone Acetate (DEPO-Medrol 40MG VIAL) 40 mg 1X ONCE IM Last administered on 01/20/17 10:10; Start 01/20/17 at 09:30; Stop 01/20/17 at 09:44 ; Status DC Bupivacaine HCl (Sensorcaine-Mpf 0.25%) 10 ml 1X ONCE IJ Last administered on 01/20/17 10:10; Start 01/20/17 at 09:30; Stop 01/20/17 at 09:44; Status DC Bisacodyl (Dulcolax Supp) 10 mg PRN DAILY PRN [place] CONSTIPATION; Start 01/20/17 at 09:30 Magnesium Citrate (Citroma) 296 ml PRN 1X PRN PO CONSTIPATION; Start 01/20/17 at 09:30 Docusate Sodium (Enemeez) 283 mg PRN DAILY PRN [place] CONSTIPATION; Start 01/20/17 at 09:30 Ibuprofen (Motrin) 800 mg TID PO Last administered on 01/24/17 08:31; Start 01/20/17 at 14:00 Pantoprazole Sodium (Protonix) 40 mg DAILYAC PO Last administered on 01/24/17 08:31; Start 01/20/17 at 10:30 Levothyroxine Sodium (Synthroid) 150 mcg DAILY07 PO Last administered on 09:30; Start 01/20/17 at 11:00; Stop 01/21/17 at 11:07; Status DC Acetaminophen (Tylenol) 650 mg PRN Q6HRS PRN PO FEVER; Start 01/20/17 at 10:00 Ondansetron HCl (Zofran) 4 mg PRN Q6HRS PRN IV NAUSEA/VOMITING Last administered on 01/23/17 22:11; Start 01/20/17 at 10:00 Hydralazine HCl (Apresoline) 10 mg PRN Q4HRS PRN IVP ELEVATED BP, SEE COMMENTS ; Start 01/20/17 at 10:00 Docusate Sodium (Colace) 100 mg PRN DAILY PRN PO CONSTIPATION; Start 01/20/17 at 10:00 Tramadol HCl (Ultram) 100 mg PRN Q6HRS PRN PO PAIN Last administered on 12:41; Start 01/20/17 at 10:00 Senna/Docusate Sodium (Senna Plus) 1 tab BID PO Last administered on 01/23/17 21:06; Start 01/20/17 at 21:00 Docusate Sodium (Colace) 100 mg BID PO Last administered on 01/24/17 08:32; Start 01/20/17 at 11:00 Magnesium Hydroxide (Milk Of Magnesia) 2,400 mg BID PO Last administered on 21:06; Start 01/20/17 at 10:00 Lactulose 20 gm PRN Q12HR PRN PO CONSTIPATION; Start 01/20/17 at 10:00 Bisacodyl (Dulcolax Supp) 10 mg PRN DAILY PRN [place] CONSTIPATION; Start 01/20/17 at 10:00; Status UNV Hydromorphone HCl (Dilaudid) 2 mg PRN Q4HRS PRN PO PAIN Last administered on 06:48; Start 01/20/17 at 13:00 Enoxaparin Sodium (Lovenox 40mg Syringe) 40 mg Q24H SQ Last administered on 14:41; Start 01/20/17 at 14:00 Alprazolam (Xanax) 0.25 mg PRN TID PRN PO ANXIETY / AGITATION Last administered on 01/23/17 14:42; Start 01/20/17 at 17:00 Levothyroxine Sodium (Synthroid) 175 mcg DAILY07 PO Last administered on 08:31; Start 01/22/17 at 07:00 Polyethylene Glycol (miraLAX PACKET) 17 gm DAILY PO Last administered on 10:14; Start 01/21/17 at 15:00 Active Scripts Active Reported Levothyroxine Sodium 150 Mcg Tablet 1 Tab PO DAILY Levothyroxine Sodium 150 Mcg Tablet 1 Tab PO DAILY Vitals/I & O Vital Sign - Last 24 Hours 01/23/17 01/23/17 01/23/17 01/23/17 19:00 21:07 21:39 23:00 Temp 97.9 97.5 97.9 97.5 Pulse 64 69 Resp 18 16 18 20 B/P (MAP) 134/97 (109) 134/88 (103) Pulse Ox 100 99 O2 Delivery Room Air Room Air Room Air 01/24/17 01/24/17 01/24/1717 03:00 06:36 07:00 07:30 Temp 97.5 97.5 97.5 97.5 Pulse 60 65 Resp 18 18 16 B/P (MAP) 145/92 (109) 127/84 (98) Pulse Ox 98 98 98 O2 Delivery Room Air Room Air Room Air Room Air 01/24/17 01/24/17 08:05 11:00 Temp 97.5 97.5 Pulse 63 Resp 16 B/P (MAP) 119/84 (96) Pulse Ox 95 O2 Delivery Room Air Room Air PENNY KING MD Jan 24, 2017 15:10
[2017-01-24] MEDS: ENOXAPARIN 40 MG/0.4 ML SYRINGE. SQ SCH (15:17)
[2017-01-24 19:00] VITALS: BP 137/91
[2017-01-24 23:00] VITALS: BP 129/89
[2017-01-25] MEDS: ONDANSETRON PF 4 MG/2 ML VIAL. IV PRN (00:17)
[2017-01-25] MEDS: HYDROmorphone 2 MG/ML VIAL IV PRN ×2 (00:17→11:44)
[2017-01-25 03:00] VITALS: BP 132/95
[2017-01-25] MEDS: LEVOTHYROXINE 175 MCG TABLET PO SCH (05:50)
[2017-01-25] MEDS: HYDROmorphone 2 MG TABLET PO PRN (05:50)
[2017-01-25] MEDS: PANTOPRAZOLE 40 MG TABLET.DR. PO SCH (05:50)
[2017-01-25 07:00] VITALS: BP 111/77
[2017-01-25] MEDS: SENNOSIDES/DOCUSATE 8.6/50MG TABLET. PO SCH (09:00)
[2017-01-25] MEDS: POLYETHYLENE GLYCOL 3350 17 GM PACKET. PO SCH (09:00)
[2017-01-25] MEDS: IBUPROFEN 800 MG TABLET. PO SCH ×2 (09:00→10:28)
[2017-01-25] MEDS: DOCUSATE SODIUM 100 MG CAPSULE. PO SCH (09:00)
[2017-01-25] MEDS: MAGNESIUM HYDROXIDE 2,400 MG/30 ML ORAL.SUSP. PO SCH (09:00)
[2017-01-25] MEDS: BISACODYL 5 MG TABLET.DR. PO SCH (09:00)
--- NOTE | 2017-01-25 09:04 | PDOC ---
PROGRESS NOTES Subjective Subjective She feels better and plans to go home after pain clinic visit. Objective Objective Vital Signs Date Time Temp Pulse Resp B/P (MAP) Pulse Ox O2 Delivery O2 Flow Rate FiO2 01/25/17 07:00 97.9 66 16 111/77 (88) 99 Room Air 97.9 01/24/17 17:25 2.0 Physical Exam Physical Exam She is supine in bed and seems comfortable and she is walking with roller walker and lumbar corset. Plan Plan of Fdc after been seen by pain clinic with out patient follow up. Comment Review of Relevant I have reviewed the following items kayla (where applicable) has been applied. Medications Current Medications Sodium Chloride 1,000 ml @ 75 mls/hr [id number] IV Last administered on 10:35; Start 01/19/17 at 21:30; Stop 01/20/17 at 12:59; Status DC Hydromorphone HCl (Dilaudid) 2 mg PRN Q2HR PRN IV PAIN Last administered on 00:17; Start 01/19/17 at 21:00 Lorazepam (Ativan) 1 mg PRN Q4HRS PRN IV ANXIETY / AGITATION Last administered on 01/20/17 08:34; Start 01/19/17 at 21:00; Stop 01/20/17 at 09:57; Status DC Bisacodyl (Dulcolax Tab) 10 mg PRN DAILY PRN PO CONSTIPATION Last administered on 01/19/17 21:23; Start 01/19/17 at 21:00; Stop 01/20/17 at 09:42; Status DC Bisacodyl (Dulcolax Tab) 10 mg DAILY PO Last administered on 01/23/17 10:12; Start 01/20/17 at 09:45 Methylprednisolone Acetate (DEPO-Medrol 40MG VIAL) 40 mg 1X ONCE IM Last administered on 01/20/17 10:09; Start 01/20/17 at 09:30; Stop 01/20/17 at 09:44 ; Status DC Methylprednisolone Acetate (DEPO-Medrol 40MG VIAL) 40 mg 1X ONCE IM Last administered on 01/20/17 10:10; Start 01/20/17 at 09:30; Stop 01/20/17 at 09:44 ; Status DC Bupivacaine HCl (Sensorcaine-Mpf 0.25%) 10 ml 1X ONCE IJ Last administered on 01/20/17 10:10; Start 01/20/17 at 09:30; Stop 01/20/17 at 09:44; Status DC Bisacodyl (Dulcolax Supp) 10 mg PRN DAILY PRN MD CONSTIPATION; Start 01/20/17 at 09:30 Magnesium Citrate (Citroma) 296 ml PRN 1X PRN PO CONSTIPATION; Start 01/20/17 at 09:30 Docusate Sodium (Enemeez) 283 mg PRN DAILY PRN MD CONSTIPATION; Start 01/20/17 at 09:30 Ibuprofen (Motrin) 800 mg TID PO Last administered on 01/24/17 08:31; Start 01/20/17 at 14:00 Pantoprazole Sodium (Protonix) 40 mg DAILYAC PO Last administered on 05:50; Start 01/20/17 at 10:30 Levothyroxine Sodium (Synthroid) 150 mcg DAILY07 PO Last administered on 09:30; Start 01/20/17 at 11:00; Stop 01/21/17 at 11:07; Status DC Acetaminophen (Tylenol) 650 mg PRN Q6HRS PRN PO FEVER; Start 01/20/17 at 10:00 Ondansetron HCl (Zofran) 4 mg PRN Q6HRS PRN IV NAUSEA/VOMITING Last administered on 01/25/17 00:17; Start 01/20/17 at 10:00 Hydralazine HCl (Apresoline) 10 mg PRN Q4HRS PRN IVP ELEVATED BP, SEE COMMENTS ; Start 01/20/17 at 10:00 Docusate Sodium (Colace) 100 mg PRN DAILY PRN PO CONSTIPATION; Start 01/20/17 at 10:00 Tramadol HCl (Ultram) 100 mg PRN Q6HRS PRN PO MILD - MODERATE PAIN Last administered on 01/21/17 12:41; Start 01/20/17 at 10:00 Senna/Docusate Sodium (Senna Plus) 1 tab BID PO Last administered on 01/23/17 21:06; Start 01/20/17 at 21:00 Docusate Sodium (Colace) 100 mg BID PO Last administered on 01/24/17 08:32; Start 01/20/17 at 11:00 Magnesium Hydroxide (Milk Of Magnesia) 2,400 mg BID PO Last administered on 21:06; Start 01/20/17 at 10:00 Lactulose 20 gm PRN Q12HR PRN PO CONSTIPATION; Start 01/20/17 at 10:00 Bisacodyl (Dulcolax Supp) 10 mg PRN DAILY PRN MD CONSTIPATION; Start 01/20/17 at 10:00; Status UNV Hydromorphone HCl (Dilaudid) 2 mg PRN Q4HRS PRN PO SEVERE PAIN Last administered on 01/25/17 05:50; Start 01/20/17 at 13:00 Enoxaparin Sodium (Lovenox 40mg Syringe) 40 mg Q24H SQ Last administered on 14:41; Start 01/20/17 at 14:00 Alprazolam (Xanax) 0.25 mg PRN TID PRN PO ANXIETY / AGITATION Last administered on 01/23/17 14:42; Start 01/20/17 at 17:00 Levothyroxine Sodium (Synthroid) 175 mcg DAILY07 PO Last administered on 05:50; Start 01/22/17 at 07:00 Polyethylene Glycol (miraLAX PACKET) 17 gm DAILY PO Last administered on 10:14; Start 01/21/17 at 15:00 Active Scripts Active Reported Levothyroxine Sodium 150 Mcg Tablet 1 Tab PO DAILY Levothyroxine Sodium 150 Mcg Tablet 1 Tab PO DAILY Vitals/I & O Vital Sign - Last 24 Hours 01/24/17 01/24/17 01/24/17 01/24/17 11:00 15:00 17:25 19:00 Temp 97.5 97.9 97.9 97.5 97.9 97.9 Pulse 63 70 80 Resp 16 16 16 B/P (MAP) 119/84 (96) 142/104 (117) 137/91 (106) Pulse Ox 95 98 98 100 O2 Delivery Room Air Room Air Room Air Room Air O2 Flow Rate 2.0 01/24/17 01/24/17 01/24/17 01/25/17 20:30 21:31 23:00 00:17 Temp 97.5 97.5 Pulse 64 Resp 17 16 17 B/P (MAP) 129/89 (102) Pulse Ox 98 100 98 O2 Delivery Room Air Room Air Room Air Room Air 01/25/17 01/25/17 01/25/17 01/25/17 00:50 03:00 05:50 07:00 Temp 96.8 97.9 96.8 97.9 Pulse 61 66 Resp 16 16 B/P (MAP) 132/95 (107) 111/77 (88) Pulse Ox 98 100 100 99 O2 Delivery Room Air Room Air Room Air Room Air PENNY KING MD Jan 25, 2017 09:04
[2017-01-25] MEDS ORDERED: IBUP800T19 PO (10:13)
[2017-01-25] MEDS ORDERED: DOCU-109 PO (10:13)
[2017-01-25] MEDS ORDERED: OXYC1TAB9 PO (10:13)
--- NOTE | 2017-01-25 10:21 | PDOC3 ---
Discharge Summary Visit Information Date of Admission: Jan 19, 2017 Date of Discharge: Jan 25, 2017 Admitting Diagnosis: back pain Final Diagnosis worsening chronic lower back pain 2/2 muscle sprain vs. sciatica 1. Acute on chronic LBP: MRI essentially unchanged. not a surgical improvment candidate 2. Pain control: ok with narcotics, but pt does not want chronic narcotics a an option. 3. Hypothyroidism: TSH 124 (!). cont synthroid, increased to 175mcg daily. O /P F/U in 1 month 4. Constipation: prob 2/2 narcotics. bowel regimen 5. DVT prophylaxis Brief Hospital Course Allergies Allergies Coded Allergies Type Severity Reaction Last Updated Verified Penicillins Allergy Intermediate Itching 12/09/14 Yes codeine Allergy Intermediate Itching 12/12/14 Yes hydrocodone Allergy Intermediate Hives 01/19/17 Yes oxycodone Allergy Intermediate Hives 12/12/14 Yes metoclopramide Adverse Reaction Severe Visual Halluciations 12/11/14 Yes Vital Signs Vital Signs Date Time Temp Pulse Resp B/P (MAP) Pulse Ox O2 Delivery O2 Flow Rate FiO2 01/25/17 07:00 97.9 66 16 111/77 (88) 99 Room Air 97.9 01/24/17 17:25 2.0 Brief Hospital Course Ms. Tyler is a 46 old admit for intractable back pain, could not walk pain meds, anti-inflammatorhy, neuro eval, physiatry, epidural planned at [place], pain a little better with therapy and brace, f.u PCP and Dr. Chavez Discharge Information Condition at Discharge: Improved Follow Up: Weeks Disposition/Orders: D/C to Home Scheduled Levothyroxine Sodium (Levothyroxine Sodium), 1 TAB PO DAILY, (Reported) Levothyroxine Sodium (Levothyroxine Sodium), 1 TAB PO DAILY, (Reported) Scheduled PRN Oxycodone Hcl/Acetaminophen (Oxycodone-Acetaminophen 10-325), 1 TAB PO QID PRN for PAIN Patient Instructions Patient Instructions off work 2 weeks, should be able to resume > 35min IRENA KO MD Jan 25, 2017 10:21
--- NOTE | 2017-01-25 19:46 | PDOC ---
PROGRESS NOTES Assessment Assessment Back pain. Right leg pain. Obesity. Hypothyroidism. No evidence of cord compression, radiculopathy, nerve impingement per L-spine MRI at the present time. RECOMMENDATIONS/PLAN: Pain control. Consulted Dr. Chavez. Treat hypothyroidism per floor team. OT/PT. Past Medical History Heme/Onc: Anemia NOS Psych: Anxiety, Depression Musculoskeletal: low back pain Renal/: UTI, Other (polycystic ovarian syndrome, endometriosis, nephrolithiasis) Endocrine: Hypothyroidism Past Surgical History , Tonsillectomy, Other (thyroidectomy, several D and C's) Family History Arthritis Social History Single, stressed out at work and at home, one child is disabled, no tobacco or alcohol ALLERGY: Reviewed. MEDICATIONS: Refer to MAR REVIEW OF SYSTEMS: Constitutional: No malnutrition, weight loss, cachexia. Head: No traumatic brain or head injury. Skin: No edema, or rash. Ear: No infection.. Eyes: No vision loss, or diplopia. Nose: No bleeding or purulent discharges. Hearing: No hearing decrease. Neck: No injury. Breast: No history of cancer, masses, or discharges. Cardiac: No MA, arrhythmia Pulmonary: No COPD. GI: No GI Ulcer, GI bleeding Urinary/genital: UTI. Endocrine: [id number], obesity. Skeletomuscular: No muscular atrophy, deformity. Neurological: see HP. Psychiatric: Denies drug use/abuse. Otherwise, not [id number] review of systems. PHYSICAL EXAMINATION: General appearance in subacute distress. HEENT: Normocephalic and nontraumatic. Eyes, nose, ears, and throat are unremarkable. Neck is supple. No lymphadenopathy. No bruits are heard over the carotid artery. No Crepitus. Cardiovascular: S1, S2, regular rate and rhythm. Pulmonary: Clear to auscultation bilaterally. Abdomen: Bowel sounds are positive. Abdomen is soft, nontender, and nondistended. Extremities: No rash, lesions, or edema. No restriction of range of motion NEUROLOGICAL EXAMINATION: Alert. Oriented to time, place and person. PERRL. EOMI. CN: no focal findings. Muscle tone: within normal. Muscle strength: 5 DTR: 2 Plantar reflex: Flexor response bilaterally Gait: not examined in bed. Sensory exam: no abnormal findings. No cerebellar signs elicited. F-T-N test accurate. Objective Objective Vital Signs Date Time Temp Pulse Resp B/P (MAP) Pulse Ox O2 Delivery O2 Flow Rate FiO2 01/25/17 12:30 99 Room Air 01/25/17 11:44 2.0 01/25/17 07:00 97.9 66 16 111/77 (88) 97.9 Vitals Signs Vitals VS - Last 72 Hours, by Label Date Time Temp Pulse Resp B/P (MAP) Pulse Ox O2 Delivery O2 Flow Rate FiO2 01/25/17 12:30 99 Room Air 01/25/17 11:44 99 Room Air 2.0 01/25/17 08:00 Room Air 01/25/17 07:00 97.9 66 16 111/77 (88) 99 Room Air 97.9 01/25/17 05:50 100 Room Air 01/25/17 03:00 96.8 61 16 132/95 (107) 100 Room Air 96.8 01/25/17 00:17 17 98 Room Air 01/24/17 23:00 97.5 64 16 129/89 (102) 100 Room Air 97.5 01/24/17 21:31 17 98 Room Air 01/24/17 20:30 Room Air 01/24/17 19:00 97.9 80 16 137/91 (106) 100 Room Air 97.9 01/24/17 17:25 98 Room Air 2.0 01/24/17 15:00 97.9 70 16 142/104 (117) 98 Room Air 97.9 01/24/17 11:00 97.5 63 16 119/84 (96) 95 Room Air 97.5 01/24/17 08:05 Room Air 01/24/17 07:00 97.5 65 16 127/84 (98) 98 Room Air 97.5 Comment Review of Relevant I have reviewed the following items kayla (where applicable) has been applied. PARAG DIOR MD Jan 25, 2017 19:46
[2017-01-26] MEDS ORDERED: HYDR2TAB31 PO (22:00)
[2017-01-26] MEDS ORDERED: LEVO175T5 PO (22:14)
== END 2017-01-25 12:50 | disposition home or self-care (01) | DRG 552 ==
LOC: 4 NORTH 19:58
PROVIDERS: ADMIT Internal Medicine; ATTEND Internal Medicine
DX: M54.5 Low back pain (principal); N39.0 Urinary tract infection, site not specified; E03.9 Hypothyroidism, unspecified; F32.9 Major depressive disorder, single episode, unspecified; E28.2 Polycystic ovarian syndrome; E66.9 Obesity, unspecified; G57.11 Meralgia paresthetica, right lower limb; G89.29 Other chronic pain; K59.03 Drug induced constipation; M70.60 Trochanteric bursitis, unspecified hip; R32 Unspecified urinary incontinence; F41.9 Anxiety disorder, unspecified; T40.605A Adverse effect of unspecified narcotics, initial encounter; Z87.442 Personal history of urinary calculi; Z88.0 Allergy status to penicillin; Z88.8 Allergy status to other drugs, medicaments and biological substances; Z68.28 Body mass index [BMI] 28.0-28.9, adult; Z82.49 Family history of ischemic heart disease and other diseases of the circulatory system
CPT/HCPCS: 36415; 72148; 74000; 80048; 84439; 84443; 85025; J1030; J1170; J1650; J2060; J2405; J3490; J7030

== ENCOUNTER 2017-01-26 19:32 | Inpatient (IN) | payer BC ==
[~2017-01-26] VITALS: Ht 175.3 cm; Wt 73.9 kg
[~2017-01-26 19:32] MED LIST: DOCU-109 PO; IBUP800T19 PO; LEVO150T5 PO; OXYC1TAB9 PO
--- NOTE | 2017-01-26 20:46 | PHYS DOC ---
Past Medical History Past Medical History: Other Additional Past Medical Histor: BACK PAIN UNKNOWN INJURY,ENDOMETRIOSIS,PCOS Past Surgical History: Cholecystectomy, Other Additional Past Surgical Histo: THRYROIDECTOMY Alcohol Use: None Drug Use: None Adult General Chief Complaint Chief Complaint: LOWER BACK PAIN OR INJURY HPI HPI Patient is a 46 year old female brought to the ED and arrived in a wheelchair with severe low back pain and pain into her right leg associated with numbness and weakness of her right leg. Patient says this has been ongoing for a while, she has been seeing her primary care doctor in the office and tried several different things including lidocaine patches, chiropractic, Lyrica. She was hospitalized last week for the pain which was worsening and in fact was just discharged from the hospital yesterday at around noon. When she was in the hospital, she states that the plan was for her to have an epidural steroid injection yesterday at 11:30, but it's her understanding that her discharge orders were written for the appointed time for the epidural steroid injection, so they said she couldn't have it because she was no longer an inpatient, and it would have to be arranged as an outpatient. The patient is frustrated by this because her primary care doctor's office takes 10-14 days to arrange referrals and she knows it'll be a long time before she can get in to see anyone as an outpatient. Her pain is continuing to be severe. Patient states when she left the hospital yesterday her pain was a 10, but they gave her a shot of pain medicine to get her through until she can get her pain medication prescription filled. She was prescribed Dilaudid 2 mg by mouth and she's taken about 5 or 6 since she left the hospital yesterday. Prior to being hospitalized, patient states that she was losing bladder control and her legs gave out from under her. This was more than a week ago. PCP Dr. Blanco in [place] Review of Systems Review of Systems Constitutional: She feels hot and has been sweating Respiratory: Denies cough or shortness of breath [] : States that she has a history of endometriosis and PCO S but these are not acute Musculoskeletal: As in history of present illness Allergies Allergies Allergies Coded Allergies Type Severity Reaction Last Updated Verified Penicillins Allergy Intermediate Itching 12/09/14 Yes codeine Allergy Intermediate Itching 12/12/14 Yes hydrocodone Allergy Intermediate Hives 01/19/17 Yes oxycodone Allergy Intermediate Hives 12/12/14 Yes metoclopramide Adverse Reaction Severe Visual Halluciations 12/11/14 Yes Physical Exam Physical Exam Constitutional: Well developed, well nourished, alert, mentating normally, warm and dry, she appears very uncomfortable, she is wearing a back brace that she got during her hospitalization, she moves on the bed very slowly and painfully HENT: Normocephalic, atraumatic, bilateral external ears normal, nose normal. [ ] Eyes: conjunctiva normal, no discharge. [] Neck: Normal range of motion, no stridor. [] Skin: Warm, dry, no erythema, no rash. [] Back: Brace is in place Extremities: No tenderness, no cyanosis, no clubbing, ROM intact, no edema. [] Neurologic: Alert and oriented X 3, she moves about slowly and uncomfortably. She is able to raise each leg off the bed independently for a moment as she moves, dorsiflexion of the great toes is decreased on the right more so than the left, she states due to pain, plantar flexion of the great toes is decreased more on the right than the left, also due to pain Current Patient Data Vital Signs Vital Signs Date Time Temp Pulse Resp B/P (MAP) Pulse Ox O2 Delivery O2 Flow Rate FiO2 01/26/17 19:47 98.3 84 20 137/99 (112) 100 Room Air 98.3 EKG EKG [] Radiology/Procedures Radiology/Procedures [] Course & Med Decision Making Course & Med Decision Making Pertinent Labs and Imaging studies reviewed. (See chart for details) 46-year-old female who has been struggling for several weeks with progressively severe low back pain with pain into her perineum, radicular pain especially on the right, with some bladder control loss and also decreased strength in the right leg which may be related to the severity of the pain. The patient was hospitalized and an epidural steroid injection was planned, but according to the patient and her family member, she was discharged apparently inadvertently prior to the procedure being accomplished, so they did not do the procedure because "her insurance would not pay for it as an outpatient". I'm not sure if I fully understand the logistical problem that led to this, but it does sound like it was some type of a logistical mixup. I offered the patient the options of a prescription for prednisone to try a week of oral steroids for her symptoms while she is arranging an outpatient epidural, versus readmission to the hospital to get her procedure completed, she agreed to the latter. I discussed the case with Dr. Burnett, [facility]. She will admit the patient. I wrote bridge orders. [] Dragon Disclaimer Dragon Disclaimer This electronic medical record was generated, in whole or in part, using a voice recognition dictation system. Departure Departure Impression: Primary Impression: Back pain Disposition: ADMITTED INPATIENT Admitting Physician: Other Condition: STABLE Referrals: LEXA BLANCO MD (PCP) ILENE RODRIGEZ MD Jan 26, 2017 20:46
[2017-01-26] MEDS ORDERED: HYDROmorphone 2 MG/ML VIAL IV ONE (21:30)
[2017-01-26] MEDS ORDERED: ONDANSETRON PF 4 MG/2 ML VIAL. IV ONE (21:30)
[2017-01-26 21:40] VITALS: BP 130/94
[2017-01-26] MEDS ORDERED: HYDR2TAB31 PO (22:00)
[2017-01-26] MEDS ORDERED: LEVO175T5 PO (22:14)
--- NOTE | 2017-01-26 22:17 | HP ---
ADMIT DATE: 01/26/2017 CHIEF COMPLAINT: Severe lower back pain. HISTORY OF PRESENT ILLNESS: The patient is a 46-year-old woman without significant medical history who presented to the ER within 2 days after discharge from home for same complaints i.e., severe lower back pain. She describes the pain actually radiating into her right leg with numbness and weakness past her knee. Pain is worse actually in her right lateral thigh. The patient relates that pain actually had started several days ago and her PCP actually tried multiple maneuvers including lidocaine patches, chiropractic and Lyrica. When none of these helped, she presented to the hospital on 01/19/2017. Apparently, multiple maneuvers were tried. Dr. Chavez saw her as well. By date of discharge on 01/25, she was found to be comfortable, walking with a roller walker and lumbar corset. She was scheduled for outpatient followup. However, once at home, pain started increasing again, not controlled with PO dilaudid and became excruciating, prompting return to the ER. She is now admitted for intractable back pain. PAST MEDICAL HISTORY: LBP as above. Hypothyroidism s/p Tonsillectomy FAMILY HISTORY: Hypertension SOCIAL HISTORY: lives with her family. 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 no toxic habits ALLERGIES: Penicillins, codeine, hydrocodone, oxycodone, metoclopramide MEDICATIONS: reconciled with MAR REVIEW OF SYSTEMS: positive as per HPI. Rest of organ system review does not yield any findings. PHYSICAL EXAM: VITAL SIGNS: blood pressure 137/99; heart rate 84, respiratory rate 20, temperature 98.3 GENERAL: well developed, well nourished, alert and oriented, appearing very uncomfortable, moving on the bed very slowly and painfully HEENT: Normocephalic, no icterus; no cervical LAD CV: regular rate and rhythm LUNGS: clear to auscultation ABD: bowel sounds normal, soft nontender BACK: Brace is in place EXTREMITIES: No tenderness, no edema. NEUROLOGIC: Alert and oriented X 3, she moves about slowly and uncomfortably. She is able to raise each leg off the bed independently for a moment as she moves, dorsiflexion of the great toes is decreased on the right more so than the left, she states due to pain, plantar flexion of the great toes is decreased more on the right than the left, also due to pain Skin: Warm, dry, no erythema, no rash. LABORATORY: none from today. labs from recent visit reviewed ASSESSMENT AND PLAN: Mrs ACOSTA is a 46 year-old woman returning to the hospital 3 days after discharge for severe lumbar back pain. She will be admitted for pain control. IV morphine will be utilized in addition to steroids, muscle relaxants and heat. Dr Chavez will be consulted in AM ; anticipate nerve root injection versus epidural. Home synthroid will be continued. ALFA BATRES MD DR: UR/nts JOB#: [id number] / [id number] VIANNEY
[2017-01-26] MEDS: IBUPROFEN 400 MG TABLET. PO SCH (22:20)
[2017-01-26] MEDS ORDERED: DEXAMETHASONE SOD PHOS 4 MG/ML VIAL IV ONE (22:30)
[2017-01-26 22:54] VITALS: BP 126/81
[2017-01-27] MEDS: HYDROmorphone 2 MG/ML VIAL IV PRN ×4 (00:40→10:12)
[2017-01-27 02:56] VITALS: BP 133/95
[2017-01-27] MEDS: IBUPROFEN 400 MG TABLET. PO SCH ×3 (06:17→21:45)
[2017-01-27] MEDS: LEVOTHYROXINE 175 MCG TABLET PO SCH (06:18)
[2017-01-27] MEDS: PANTOPRAZOLE 40 MG TABLET.DR. PO SCH (06:23)
[2017-01-27 07:00] VITALS: BP 119/86
[2017-01-27] MEDS ORDERED: LEVOTHYROXINE 150 MCG TABLET PO SCH (07:00)
[2017-01-27] MEDS: POLYETHYLENE GLYCOL 3350 17 GM PACKET. PO SCH (08:27)
[2017-01-27 11:00] VITALS: BP 105/63
--- NOTE | 2017-01-27 11:35 | CONS ---
DATE OF CONSULTATION: 01/27/2017 ATTENDING PHYSICIAN: Sylvia Burnett MD The patient was seen at the request of Dr. Burnett for rehab evaluation. She is in room 519. HISTORY OF PRESENT ILLNESS: This is a 46-year-old female admitted through the Emergency Room with severe lower back pain with radiation to her right lower extremity with associated tingling, numbness and weakness and constipation. The patient has been taking Dilaudid, but still admitted with 10/10 pain through the Emergency Room. She came to the Emergency Room in a wheelchair. The patient's problem with back started about 6 months ago without any specific injury. MRI scan of her lumbar spine done in October revealed mild disk bulging at L5-S1 and to some extent at L4-L5 without any obvious stenosis or neural foraminal compromise. She had gone through outpatient physical therapy without any lasting help. ALLERGIES: THE PATIENT IS KNOWN ALLERGIC TO PENICILLIN, CODEINE, HYDROCODONE, REGLAN AND OXYCODONE. She lives with her and children in [place], [place], had no steps to manage. 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 The patient received right sacroiliac joint and right trochanteric bursa injection during her stay last week. Actually, I injected her on 01/20/2017. The patient received a lumbar corset, and at the time of discharge on 01/25/2017, she was walking using a roller walker and independent with her mobility. She was supposed to have a lumbar epidural steroid injection before discharge, but apparently, it was not done. The patient denies any specific new injury. She admits Dilaudid is not helping ease her pain. She had received MS Contin during her hospitalization and also fentanyl patch without any significant help. PHYSICAL EXAMINATION: Today revealed a middle-aged female. She is alert, oriented to time, place, person and circumstance and follows commands appropriately, moves all 4 extremities voluntarily where she had 4+/5 grade muscle strength. Deep tendon reflexes are 1 to 2+ and symmetrical. She had slightly decreased touch and pinprick sensation over right lateral femoral cutaneous nerve distribution. Other than that, equal perception of touch and pinprick sensation bilaterally. The patient had localized tenderness to palpation over right sacroiliac joint area with minimal degree of over right trochanteric bursa. She had pain-free range of motion on both hip joints. I have not tested her mobility skills. She has been lying down on her left side when I examined her. Straight leg raising test is negative bilaterally. Her skin is intact at this time. Negative Tinel sign over right lateral femoral cutaneous nerve at inguinal ligament area. ASSESSMENT: A middle-aged female with chronic lower back pain, most probably from mild degenerative disk disease with right lumbar radiculitis. No clinical evidence of ongoing lumbar radiculopathy. She also presented with meralgia paresthetica, right thigh and mild trochanteric bursitis. RECOMMENDATION: To ask pain clinic to proceed with lumbar epidural steroid injection and if the pain is better controlled, she can go home. I have also spoken to pharmacy about trying Nucynta ER to better control her pain. Dr. Burnett, I appreciate asking me to participate in the care of this interesting patient. I will be glad to follow her with you as needed for her rehabilitation. PENNY KING MD DR: MARCELL/po JOB#: [id number] / [id number]
--- NOTE | 2017-01-27 11:39 | PDOC ---
PROGRESS NOTES Chief Complaint Chief Complaint worsening chronic lower back pain 2/2 muscle sprain vs. sciatica (recently here Jan 19- for same issues) Hypothyroidism: TSH 124 (!). dose inc to 175ncg Constipation: prob 2/2 narcotics. bowel regimen DVT prophylaxis History of Present Illness History of Present Illness Out having epid injections by pain clinic TSH 124 - colleague increased her dose recently to 175 - will need tsh, t3 t4 in 4-6 weeks time COnstipated Physiatry has started nucynta ER BID Ok to have PO dilaudid for pain control' - jason Yang BOwel regimen Plan: as above Jason yang MOve stools COnt PO pain meds for breakthrough pain Target home tmr PT/OT Vitals Vitals Vital Signs Date Time Temp Pulse Resp B/P (MAP) Pulse Ox O2 Delivery O2 Flow Rate FiO2 01/27/17 11:00 97.7 81 20 105/63 (77) 99 Room Air 97.7 Physical Exam General: Alert, Oriented X3, Cooperative Heart: Regular rate Lungs: Clear Abdomen: Normal bowel sounds, Soft Extremities: No clubbing, No cyanosis Skin: No rashes, No breakdown Review of Systems Review of Systems back apin Comment Review of Relevant I have reviewed the following items kayla (where applicable) has been applied. Medications Current Medications Hydromorphone HCl (Dilaudid) 2 mg 1X ONCE IV Last administered on 01/26/17 21:28; Start 01/26/17 at 21:30; Stop 01/26/17 at 21:31; Status DC Ondansetron HCl (Zofran) 4 mg 1X ONCE IV Last administered on 01/26/17 21:28 ; Start 01/26/17 at 21:30; Stop 01/26/17 at 21:31; Status DC Hydromorphone HCl (Dilaudid) 1 mg PRN Q2HR PRN IV severe pain Last administered on 01/27/17 10:12; Start 01/26/17 at 22:00 Dexamethasone Sodium Phosphate (Decadron) 10 mg 1X ONCE IV Last administered on 01/26/17 22:22; Start 01/26/17 at 22:30; Stop 01/26/17 at 22:31; Status DC Ibuprofen (Motrin) 400 mg Q8H PO Last administered on 01/27/17 06:17; Start 01/26/17 at 22:00 Pantoprazole Sodium (Protonix) 40 mg DAILYAC PO Last administered on 06:23; Start 01/27/17 at 07:30 Polyethylene Glycol (miraLAX PACKET) 17 gm DAILY PO Last administered on 08:27; Start 01/27/17 at 09:00 Levothyroxine Sodium (Synthroid) 150 mcg DAILY07 PO ; Start 01/27/17 at 07:00; Status Cancel Levothyroxine Sodium (Synthroid) 175 mcg DAILY07 PO Last administered on 06:18; Start 01/27/17 at 07:00 Active Scripts Active Ibuprofen 800 Mg Tablet 800 Mg PO TID Colace (Docusate Sodium) 100 Mg Capsule 100 Mg PO BID Reported Levothyroxine Sodium 175 Mcg Tablet 1 Tab PO DAILY Dilaudid (Hydromorphone Hcl) 2 Mg Tablet 1 Tab PO Q4-6HRS PRN Vitals/I & O Vital Sign - Last 24 Hours 01/26/17 01/26/17 01/26/17 01/26/17 19:47 21:28 21:31 21:40 Temp 98.3 98.1 98.3 98.1 Pulse 84 86 78 Resp 20 20 19 B/P (MAP) 137/99 (112) 127/88 (101) 130/94 (106) Pulse Ox 100 99 99 92 O2 Delivery Room Air Room Air Room Air Room Air 01/26/17 01/27/17 01/27/17 01/27/17 22:54 00:40 02:50 02:56 Temp 98.0 98.0 Pulse 85 73 Resp 18 18 20 18 B/P (MAP) 126/81 (96) 133/95 (108) Pulse Ox 94 94 94 95 O2 Delivery Room Air Room Air Room Air Room Air 01/27/17 01/27/17 01/27/17 01/27/17 06:18 07:00 08:00 10:12 Temp 96.4 96.4 Pulse 75 Resp 20 20 20 B/P (MAP) 119/86 (97) Pulse Ox 95 100 100 O2 Delivery Room Air Room Air Room Air Room Air 01/27/17 01/27/17 10:42 11:00 Temp 97.7 97.7 Pulse 81 Resp 20 20 B/P (MAP) 105/63 (77) Pulse Ox 100 99 O2 Delivery Room Air Room Air SOLOMON NEVAREZ MD Jan 27, 2017 11:39
[2017-01-27] MEDS ORDERED: methylPREDNISolone ACETATE 80 MG/ML VIAL. ONE (12:20)
[2017-01-27] MEDS ORDERED: methylPREDNISolone ACETATE 40 MG/ML VIAL. ONE (12:20)
[2017-01-27] MEDS ORDERED: IOHEXOL 180 MG/ML 10 ML VIAL. ONE (12:20)
--- NOTE | 2017-01-27 12:59 | PDOC ---
SUBJECTIVE Subjective low back and right leg pain OBJECTIVE Objective 46-year-old female admitted through the Emergency Room with severe lower back pain with radiation to her right lower extremity with associated tingling, numbness and weakness. The patient's problem with her back started about 6 months ago without any specific injury. MRI scan of her lumbar spine done in October revealed mild disk bulging at L5-S1 and at L4-L5 without any obvious stenosis or neural foraminal compromise. She had gone through outpatient physical therapy without any lasting help. Vital Signs Vital Signs Date Time Temp Pulse Resp B/P (MAP) Pulse Ox O2 Delivery O2 Flow Rate FiO2 01/27/17 11:00 97.7 81 20 105/63 (77) 99 Room Air 97.7 01/27/17 10:42 20 100 Room Air 01/27/17 10:12 20 100 Room Air 01/27/17 08:00 Room Air 01/27/17 07:00 96.4 75 20 119/86 (97) 100 Room Air 96.4 01/27/17 06:18 20 95 Room Air 01/27/17 02:56 73 18 133/95 (108) 95 Room Air 01/27/17 02:50 20 94 Room Air 01/27/17 00:40 18 94 Room Air 01/26/17 22:54 98.0 85 18 126/81 (96) 94 Room Air 98.0 01/26/17 21:40 98.1 78 19 130/94 (106) 92 Room Air 98.1 01/26/17 21:31 86 20 127/88 (101) 99 Room Air 01/26/17 21:28 99 Room Air 01/26/17 19:47 98.3 84 20 137/99 (112) 100 Room Air 98.3 PHYSICAL EXAM Physical Exam A&O, LE's DTR's 2+/4+, motor= 5/5 bilat Back = FROM L spine ASSESSMENT/PLAN Assessment/Plan Plan: LESI today L5-S1 If not improved, consider neurology eval.(hx of L.E. dysfunction and paralysis x2) Problems: ESVIN COOK MD Jan 27, 2017 12:59
[2017-01-27] MEDS ORDERED: MAGNESIUM CITRATE 296 ML SOLUTION. PO ONE (14:15)
[2017-01-27] MEDS ORDERED: BISACODYL 5 MG TABLET.DR. PO PRN (14:15)
[2017-01-27 15:00] VITALS: BP 134/83
[2017-01-27] MEDS: HYDROmorphone 2 MG TABLET PO PRN ×2 (15:15→20:03)
[2017-01-27 19:00] VITALS: BP 114/83
[2017-01-27 23:00] VITALS: BP 117/74
[2017-01-28] MEDS: HYDROmorphone 2 MG TABLET PO PRN (02:07)
[2017-01-28 03:00] VITALS: BP 123/73
[2017-01-28] MEDS: IBUPROFEN 400 MG TABLET. PO SCH ×2 (05:44→13:29)
[2017-01-28] MEDS: LEVOTHYROXINE 175 MCG TABLET PO SCH (05:45)
[2017-01-28 07:00] VITALS: BP 92/61
[2017-01-28] MEDS: POLYETHYLENE GLYCOL 3350 17 GM PACKET. PO SCH (08:20)
[2017-01-28] MEDS: PANTOPRAZOLE 40 MG TABLET.DR. PO SCH (08:20)
--- NOTE | 2017-01-28 09:19 | PDOC ---
PROGRESS NOTES Subjective Subjective She feels better. Objective Objective Vital Signs Date Time Temp Pulse Resp B/P (MAP) Pulse Ox O2 Delivery O2 Flow Rate FiO2 01/28/17 07:00 97.5 59 17 92/61 (71) 97 Room Air 97.5 Physical Exam Physical Exam She is alert and comfortable but still some tenderness to palpation over right sacroiliac joint and trochanteric bursa area and decreased sensory perception over right lateral femoral cutaneous nerve distribution right thigh.She is getting up and walking. Plan Plan of Alf with out patient follow up by pain clinic.I have completed her FMLA papers and she had dilaudid from prescription given earlier this week. Comment Review of Relevant I have reviewed the following items kayla (where applicable) has been applied. Medications Current Medications Hydromorphone HCl (Dilaudid) 2 mg 1X ONCE IV Last administered on 01/26/17 21:28; Start 01/26/17 at 21:30; Stop 01/26/17 at 21:31; Status DC Ondansetron HCl (Zofran) 4 mg 1X ONCE IV Last administered on 01/26/17 21:28 ; Start 01/26/17 at 21:30; Stop 01/26/17 at 21:31; Status DC Hydromorphone HCl (Dilaudid) 1 mg PRN Q2HR PRN IV severe pain Last administered on 01/27/17 10:12; Start 01/26/17 at 22:00; Stop 01/27/17 at 11 :40; Status DC Dexamethasone Sodium Phosphate (Decadron) 10 mg 1X ONCE IV Last administered on 01/26/17 22:22; Start 01/26/17 at 22:30; Stop 01/26/17 at 22:31; Status DC Ibuprofen (Motrin) 400 mg Q8H PO Last administered on 01/28/17 05:44; Start 01/26/17 at 22:00 Pantoprazole Sodium (Protonix) 40 mg DAILYAC PO Last administered on 08:20; Start 01/27/17 at 07:30 Polyethylene Glycol (miraLAX PACKET) 17 gm DAILY PO Last administered on 08:27; Start 01/27/17 at 09:00 Levothyroxine Sodium (Synthroid) 150 mcg DAILY07 PO ; Start 01/27/17 at 07:00; Status Cancel Levothyroxine Sodium (Synthroid) 175 mcg DAILY07 PO Last administered on 05:45; Start 01/27/17 at 07:00 Hydromorphone HCl (Dilaudid) 2 mg PRN Q4HRS PRN PO PAIN Last administered on 02:07; Start 01/27/17 at 11:45 Methylprednisolone Acetate (DEPO-Medrol 40MG VIAL) 40 mg STK-MED ONCE .ROUTE ; Start 01/27/17 at 12:20; Stop 01/27/17 at 12:21; Status DC Iohexol (Omnipaque 180 Mg/ml) 10 ml STK-MED ONCE .ROUTE ; Start 01/27/17 at 12: 20; Stop 01/27/17 at 12:21; Status DC Methylprednisolone Acetate (DEPO-Medrol 80MG VIAL) 80 mg STK-MED ONCE .ROUTE ; Start 01/27/17 at 12:20; Stop 01/27/17 at 12:21; Status DC Bisacodyl (Dulcolax Tab) 10 mg PRN DAILY PRN PO CONSTIPATION; Start 01/27/17 at 14:15 Magnesium Citrate (Citroma) 296 ml 1X ONCE PO Last administered on 01/27/17 15:15; Start 01/27/17 at 14:15; Stop 01/27/17 at 14:17; Status DC Active Scripts Active Ibuprofen 800 Mg Tablet 800 Mg PO TID Colace (Docusate Sodium) 100 Mg Capsule 100 Mg PO BID Reported Levothyroxine Sodium 175 Mcg Tablet 1 Tab PO DAILY Dilaudid (Hydromorphone Hcl) 2 Mg Tablet 1 Tab PO Q4-6HRS PRN Vitals/I & O Vital Sign - Last 24 Hours 01/27/17 01/27/17 01/27/17 01/27/17 10:12 10:42 11:00 15:00 Temp 97.7 97.9 97.7 97.9 Pulse 81 72 Resp 20 20 20 20 B/P (MAP) 105/63 (77) 134/83 (100) Pulse Ox 100 100 99 98 O2 Delivery Room Air Room Air Room Air Room Air 01/27/17 01/27/17 01/27/17 01/27/17 15:15 19:00 20:00 20:03 Temp 98.5 98.5 Pulse 76 Resp 20 18 19 B/P (MAP) 114/83 (93) Pulse Ox 99 97 99 O2 Delivery Room Air Room Air Room Air Room Air 01/27/17 01/27/17 01/28/17 01/28/17 21:03 23:00 02:07 03:00 Temp 98.1 97.8 98.1 97.8 Pulse 71 59 Resp 18 18 18 18 B/P (MAP) 117/74 (88) 123/73 (90) Pulse Ox 99 98 98 98 O2 Delivery Room Air Room Air Room Air Room Air 01/28/17 07:00 Temp 97.5 97.5 Pulse 59 Resp 17 B/P (MAP) 92/61 (71) Pulse Ox 97 O2 Delivery Room Air PENNY KING MD Jan 28, 2017 09:19
[2017-01-28 11:00] VITALS: BP 110/70
[2017-01-28] MEDS ORDERED: TAPE100T9 PO (12:19)
--- NOTE | 2017-01-28 12:32 | PDOC3 ---
Discharge Summary Visit Information Date of Admission: Jan 26, 2017 Date of Discharge: Jan 28, 2017 Admitting Diagnosis Comment: worsening chronic lower back pain 2/2 muscle sprain vs. sciatica (recently here Jan 19- for same issues) s/p EPID injections by DR. Norman - BETTER Hypothyroidism: TSH 124 (!). dose inc to 175mcg Constipation: prob 2/2 narcotics. bowel regimen DVT prophylaxis Brief Hospital Course Allergies Allergies Coded Allergies Type Severity Reaction Last Updated Verified Penicillins Allergy Intermediate Itching 12/09/14 Yes codeine Allergy Intermediate Itching 12/12/14 Yes hydrocodone Allergy Intermediate Hives 01/19/17 Yes oxycodone Allergy Intermediate Hives 12/12/14 Yes metoclopramide Adverse Reaction Severe Visual Halluciations 12/11/14 Yes Vital Signs Vital Signs Date Time Temp Pulse Resp B/P (MAP) Pulse Ox O2 Delivery O2 Flow Rate FiO2 01/28/17 08:00 Room Air 01/28/17 07:00 97.5 59 17 92/61 (71) 97 97.5 Brief Hospital Course Ms. Tyler is a 46 old female who was a readmission for same issues, back pain that was unresolved when she left here just few days ago, This time, she got back injections from DR. Mart Norman and physiatry started her on nucynta ER BID and she also has moved her BM, She still has dilaudid Rx from last admit,.SHe is WAY BETTER, She claims she did not get her recently inc synthroid dose last admit (now up to 175 mcg ) for her TSH that is 124. Known HYPothyroidism. Rpt TSH and T3, T4 script also given to her by me, Dw her and whole family and physiatry Seen and examined Time 31 mins, > 50% counselling, providing scripts, discussing dc instructions Discharge Information Condition at Discharge: Improved, Stable Disposition/Orders: D/C to Home Scheduled Docusate Sodium (Colace), 100 MG PO BID Ibuprofen (Ibuprofen), 800 MG PO TID Levothyroxine Sodium (Levothyroxine Sodium), 1 TAB PO DAILY, (Reported) Tapentadol Hcl (Nucynta Er), 1 TAB PO BID, (Reported) Scheduled PRN Hydromorphone Hcl (Dilaudid), 1 TAB PO Q4-6HRS PRN for PAIN, (Reported) Discontinued Medications Levothyroxine Sodium (Levothyroxine Sodium), 1 TAB PO DAILY, (Reported) SOLOMON NEVAREZ MD Jan 28, 2017 12:32
== END 2017-01-28 13:45 | disposition home or self-care (01) | DRG 74 ==
LOC: ER 19:32 → 5 NORTH 20:45
PROVIDERS: ADMIT Internal Medicine Hematology & Oncology; ATTEND Internal Medicine Hematology & Oncology
DX: G57.10 Meralgia paresthetica, unspecified lower limb (principal); E03.9 Hypothyroidism, unspecified; G89.29 Other chronic pain; K59.00 Constipation, unspecified; M70.60 Trochanteric bursitis, unspecified hip; M54.5 Low back pain; M79.604 Pain in right leg; R53.1 Weakness; R20.0 Anesthesia of skin
CPT/HCPCS: 62323; 96374; 96375; J1030; J1040; J1100; J1170; J2405; 99285-25

== ENCOUNTER 2017-02-05 13:34 | Emergency (ER) | payer BC ==
[~2017-02-05] VITALS: Ht 170.2 cm; Wt 73.9 kg
[~2017-02-05 13:34] MED LIST changes: +HYDR2TAB31 PO; +LEVO175T5 PO; +TAPE100T9 PO
[2017-02-05 14:51] LABS: BASO # 0.1 x10^3/uL (0.0-0.2); BASO % 1 % (0-3); EOS % 2 % (0-3); HEMOGLOBIN 12.7 g/dL (12.0-15.5); LYMPH # 1.6 x10^3/uL (1.0-4.8); LYMPH % 30 % (24-48); MEAN CORPUSCULAR HEMOGLOBIN 29 pg (25-35); MEAN CORPUSCULAR HGB CONC 34 g/dL (31-37); MEAN CORPUSCULAR VOLUME 87 fL (79-100); MONO % 10 % (0-9); NEUT % 58 % (31-73); PLATELET COUNT 289 x10^3/uL (140-400); RED BLOOD COUNT 4.34 x10^6/uL (3.50-5.40); RED CELL DISTRIBUTION WIDTH 14.4 % (11.5-14.5); WHITE BLOOD COUNT 5.5 x10^3/uL (4.0-11.0)
--- NOTE | 2017-02-05 15:06 | RAD ---
Three-view right knee radiographs 02/05/2017 Clinical history: Fall with injury to the right knee. AP, lateral and oblique digital radiographs of the right knee were obtained. No fracture or dislocation right knee is seen. There is no radiographic evidence of a joint effusion. Impression: No fracture or dislocation of the right knee is seen.
--- NOTE | 2017-02-05 15:07 | RAD ---
2 view left clavicle radiographs 02/05/2017 Clinical history: Fall with injury to the left clavicle. AP and axial digital radiographs of the left clavicle were obtained. No fracture or dislocation of the left clavicle is seen. The left AC joint is intact. Impression: No fracture or dislocation of the left clavicle is seen.
--- NOTE | 2017-02-05 15:09 | RAD ---
AP pelvis to include AP and lateral radiographs of the right hip 02/05/2017 Clinical history: Fall with injury to the right hip. 2 AP digital radiographs of the pelvis to include both hips were obtained. AP and lateral radiographs of the right hip were obtained. No pelvic bone fractures seen. Both hips are intact. Specifically no fracture or dislocation of the right hip is seen. Calcifications are seen within the pelvis consistent with phleboliths. Impression: No fracture or dislocation is seen.
--- NOTE | 2017-02-05 15:10 | RAD ---
Three-view right elbow radiographs 02/05/2017 Clinical history: Fall with injury to the right elbow. AP, oblique and lateral digital radiographs of the right elbow were obtained. No fracture or dislocation of the right elbow is seen. There is no radiographic evidence of a joint effusion. Impression: No fracture or dislocation of the right elbow is seen.
--- NOTE | 2017-02-05 15:11 | RAD ---
Three-view left shoulder radiographs 02/05/2017 Clinical history: Fall with injury to the left shoulder. AP internal and external rotation and transscapular digital radiographs of the left shoulder were obtained. No fracture or dislocation of the left shoulder is seen. No significant degenerative changes are noted. Impression: No fracture or dislocation of the left shoulder is seen.
[2017-02-05 15:22] LABS: CALCIUM 9.4 mg/dL (8.5-10.1); CREATININE 0.7 mg/dL (0.6-1.0); GFR 90.9; POTASSIUM 3.8 mmol/L (3.5-5.1)
[2017-02-05 15:28] LABS: ALBUMIN/GLOBULIN RATIO 1.1 (1.0-1.7); TOTAL BILIRUBIN 0.4 mg/dL (0.2-1.0); TOTAL PROTEIN 7.7 g/dL (6.4-8.2)
--- NOTE | 2017-02-05 15:33 | RAD ---
Exam performed: CT scan of the head and cervical spine without contrast. Date of Service: 02/05/2017 Comparison: None available Clinical History: Patient fell 2 foot and hit head Technique: Helical acquisitions are obtained from the foramen magnum to the vertex without intravenous administration of contrast. In addition helical acquisitions are obtained through the cervical spine. Sagittal and coronal reformatted images are obtained and reviewed. CT scan head findings: The ventricular system is midline without evidence of dilatation. Normal barone-white differentiation is maintained. There is no extra axial fluid collection, intraparenchymal hemorrhage or mass lesion. The visualized orbits, paranasal sinuses and the mastoid air cells are clear. The calvarium is intact. Impression: 1. Normal non-contrast CT of the brain. End Impression. CT cervical spine findings: Normal sagittal alignment is preserved. The vertebral body heights and intravertebral disc spaces are maintained. There is no jordan or retrolisthesis. No prevertebral soft tissue swelling is identified. There are no fractures. No definite lymphadenopathy or masses are seen within the neck. The visualized thyroid and salivary glands appears preserved. Impression: 1. No acute abnormality seen in the CT scan cervical spine. PQRS Compliance Statement: One or more of the following individualized dose reduction techniques were utilized for this examination: 1. Automated exposure control 2. Adjustment of the mA and/or kV according to patient size 3. Use of iterative reconstruction technique Electronically signed by: Brielle Myles MD (02/05/2017 3:29 PM) [facility]
[2017-02-05 16:54] LABS: BILIRUBIN,URINE NEGATIVE (NEG); GLUCOSE,URINE NEGATIVE (NEG); NITRITE,URINE NEGATIVE (NEG); PH,URINE 7.5; PROTEIN,URINE NEGATIVE (NEG-TRACE); UROBILINOGEN,URINE 0.2 mg/dL (0.2 mg/dL)
[2017-02-05 17:01] LABS: BARBITURATES NEG (NEG); BENZODIAZEPINES NEG (NEG); CANNABINOIDS NEG (NEG); COCAINE NEG (NEG); METHADONE NEG (NEG); OPIATES NEG (NEG); PHENCYCLIDINE NEG (NEG)
[2017-02-05] MEDS ORDERED: CYCL5TAB PO (17:08)
--- NOTE | 2017-02-05 17:08 | PHYS DOC ---
Past Medical History Past Medical History: Endometriosis, Other Additional Past Medical Histor: CHRONIC BACK PAIN,PCOS Past Surgical History: Cholecystectomy, Other Additional Past Surgical Histo: THRYROIDECTOMY Alcohol Use: None Drug Use: None Adult General Chief Complaint Chief Complaint: MECHANICAL FALL HPI HPI Patient is a 46 year old female who presents with after a fall. The patient states she was standing on a chair painting. She believes she experienced a syncopal episode and woke up on the floor. She felt dizzy and lightheaded before the fall. She denies any chest pain, palpitations, shortness of breath, headache prior to the fall. Now she complains of headache, neck pain, left clavicle and shoulder pain, right elbow pain, right knee and hip pain, back pain. He arrives by EMS with cervical spine collar in place. She denies use of blood thinners. Review of Systems Review of Systems Constitutional: Denies fever or chills Eyes: Denies change in visual acuity HENT: Denies nasal congestion or sore throat Respiratory: Denies cough or shortness of breath Cardiovascular: Denies chest pain or edema GI: Denies abdominal pain, nausea, vomiting, or diarrhea : Denies dysuria or hematuria Musculoskeletal: Reports neck and back pain and joint pain as above Integument: Denies rash or skin lesions Neurologic: Reports headache, denies focal weakness or sensory changes Allergies Allergies Allergies Coded Allergies Type Severity Reaction Last Updated Verified Penicillins Allergy Intermediate Itching 12/09/14 Yes codeine Allergy Intermediate Itching 12/12/14 Yes hydrocodone Allergy Intermediate Hives 01/19/17 Yes oxycodone Allergy Intermediate Hives 12/12/14 Yes metoclopramide Adverse Reaction Severe Visual Halluciations 12/11/14 Yes Physical Exam Physical Exam Constitutional: Well developed, well nourished, no acute distress, non-toxic appearance. HENT: Normocephalic, atraumatic, bilateral external ears normal, oropharynx moist, nose normal. Eyes: PERRLA, EOMI, conjunctiva normal, no discharge. Neck: supple, no stridor. c-collar in place upon arrival. Cardiovascular: RRR, no murmurs, no edema. Lungs & Thorax: LCTAB, no wheezing, no respiratory distress. Abdomen: soft, nontender, nondistended. Skin: Warm, dry, no erythema, no rash. Back: diffuse thoracic spine tenderness without step offs. no lumbar tenderness Extremities: tenderness without deformity to left clavicle & shoulder, right elbow, right knee & hip. painful range of motion at all affected extremities. distally neurovascularly intact to all 4 extremities. Neurologic: Alert and oriented X 3, CN2-12 grossly intact, symmetric strength/ sensation to upper & lower extremities, no focal deficits noted. Psychologic: Affect normal, judgement normal, mood normal. Current Patient Data Vital Signs Vital Signs Date Time Temp Pulse Resp B/P (MAP) Pulse Ox O2 Delivery O2 Flow Rate FiO2 02/05/17 17:13 68 98 02/05/17 13:34 97.5 22 145/86 (105) 97.5 Lab Values Laboratory Tests Test 02/05/17 14:40 02/05/17 16:35 02/05/17 16:48 White Blood Count 5.5 x10^3/uL (4.0-11.0) Red Blood Count 4.34 x10^6/uL (3.50-5.40) Hemoglobin 12.7 g/dL (12.0-15.5) Hematocrit 38.0 % (36.0-47.0) Mean Corpuscular Volume 87 fL (79-100) Mean Corpuscular Hemoglobin 29 pg (25-35) Mean Corpuscular Hemoglobin Concent 34 g/dL (31-37) Red Cell Distribution Width 14.4 % (11.5-14.5) Platelet Count 289 x10^3/uL (140-400) Neutrophils (%) (Auto) 58 % (31-73) Lymphocytes (%) (Auto) 30 % (24-48) Monocytes (%) (Auto) 10 % (0-9) H Eosinophils (%) (Auto) 2 % (0-3) Basophils (%) (Auto) 1 % (0-3) Neutrophils # (Auto) 3.2 x10^3uL (1.8-7.7) Lymphocytes # (Auto) 1.6 x10^3/uL (1.0-4.8) Monocytes # (Auto) 0.5 x10^3/uL (0.0-1.1) Eosinophils # (Auto) 0.1 x10^3/uL (0.0-0.7) Basophils # (Auto) 0.1 x10^3/uL (0.0-0.2) Sodium Level 141 mmol/L (136-145) Potassium Level 3.8 mmol/L (3.5-5.1) Chloride Level 104 mmol/L (98-107) Carbon Dioxide Level 29 mmol/L (21-32) Anion Gap 8 (6-14) Blood Urea Nitrogen 15 mg/dL (7-20) Creatinine 0.7 mg/dL (0.6-1.0) Estimated GFR (Cockcroft-Gault) 90.9 BUN/Creatinine Ratio 21 (6-20) H Glucose Level 95 mg/dL (70-99) Calcium Level 9.4 mg/dL (8.5-10.1) Total Bilirubin 0.4 mg/dL (0.2-1.0) Aspartate Amino Transferase (AST) 18 U/L (15-37) Alanine Aminotransferase (ALT) 20 U/L (14-59) Alkaline Phosphatase 51 U/L (46-116) Troponin I Quantitative < 0.017 ng/mL (0.000-0.055) QN-Ixz-W-Type Natriuretic Peptide 53 pg/mL (0-124) Total Protein 7.7 g/dL (6.4-8.2) Albumin 4.0 g/dL (3.4-5.0) Albumin/Globulin Ratio 1.1 (1.0-1.7) Ethyl Alcohol Level < 10 mg/dL (0-10) Urine Collection Type Void Urine Color Yellow Urine Clarity Cloudy Urine pH 7.5 Urine Specific [place] 1.020 Urine Protein Negative mg/dL (NEG-TRACE) Urine Glucose (UA) Negative mg/dL (NEG) Urine Ketones (Stick) Negative mg/dL (NEG) Urine Blood Negative (NEG) Urine Nitrite Negative (NEG) Urine Bilirubin Negative (NEG) Urine Urobilinogen Dipstick 0.2 mg/dL (0.2 mg/dL) Urine Leukocyte Esterase Moderate (NEG) Urine RBC 0 /HPF (0-2) Urine WBC 5-10 /HPF (0-4) Urine Squamous Epithelial Cells Many /LPF Urine Bacteria Moderate /HPF (0-FEW) Urine Mucus Marked /LPF Urine Opiates Screen Neg (NEG) Urine Methadone Screen Neg (NEG) Urine Barbiturates Neg (NEG) Urine Phencyclidine Screen Neg (NEG) Urine Amphetamine/Methamphetamine Neg (NEG) Urine Benzodiazepines Screen Neg (NEG) Urine Cocaine Screen Neg (NEG) Urine Cannabinoids Screen Neg (NEG) Urine Ethyl Alcohol Neg (NEG) POC Urine HCG, Qualitative Hcg negative (Negative) Laboratory Tests 02/05/17 14:40 Laboratory Tests 02/05/17 14:40 EKG EKG Interpreted by me: Normal sinus rhythm rate 68, no acute ST or T wave changes, normal intervals, no ectopy.[] Radiology/Procedures Radiology/Procedures Thoracic spine XR, 3 views: interpreted by me: no fracture, normal alignment, no acute process. PROCEDURE: HIP RIGHT 2V WITH PELVIS AP pelvis to include AP and lateral radiographs of the right hip 02/05/2017 Clinical history: Fall with injury to the right hip. 2 AP digital radiographs of the pelvis to include both hips were obtained. AP and lateral radiographs of the right hip were obtained. No pelvic bone fractures seen. Both hips are intact. Specifically no fracture or dislocation of the right hip is seen. Calcifications are seen within the pelvis consistent with phleboliths. Impression: No fracture or dislocation is seen. DICTATED and SIGNED BY: GRETEL PANTOJA MD DATE: 02/05/17 1503 PROCEDURE: SHOULDER 2+V LEFT Three-view left shoulder radiographs 02/05/2017 Clinical history: Fall with injury to the left shoulder. AP internal and external rotation and transscapular digital radiographs of the left shoulder were obtained. No fracture or dislocation of the left shoulder is seen. No significant degenerative changes are noted. Impression: No fracture or dislocation of the left shoulder is seen. DICTATED and SIGNED BY: GRETEL PANTOJA MD DATE: 02/05/17 1506 PROCEDURE: KNEE RIGHT 3V Three-view right knee radiographs 02/05/2017 Clinical history: Fall with injury to the right knee. AP, lateral and oblique digital radiographs of the right knee were obtained. No fracture or dislocation right knee is seen. There is no radiographic evidence of a joint effusion. Impression: No fracture or dislocation of the right knee is seen. DICTATED and SIGNED BY: GRETEL PANTOJA MD DATE: 02/05/17 1501 PROCEDURE: CT HEAD AND CERVICAL SPINE WO Exam performed: CT scan of the head and cervical spine without contrast. Date of Service: 02/05/2017 Comparison: None available Clinical History: Patient fell 2 foot and hit head Technique: Helical acquisitions are obtained from the foramen magnum to the vertex without intravenous administration of contrast. In addition helical acquisitions are obtained through the cervical spine. Sagittal and coronal reformatted images are obtained and reviewed. CT scan head findings: The ventricular system is midline without evidence of dilatation. Normal barone-white differentiation is maintained. There is no extra axial fluid collection, intraparenchymal hemorrhage or mass lesion. The visualized orbits, paranasal sinuses and the mastoid air cells are clear. The calvarium is intact. Impression: 1. Normal non-contrast CT of the brain. End Impression. CT cervical spine findings: Normal sagittal alignment is preserved. The vertebral body heights and intravertebral disc spaces are maintained. There is no jordan or retrolisthesis. No prevertebral soft tissue swelling is identified. There are no fractures. No definite lymphadenopathy or masses are seen within the neck. The visualized thyroid and salivary glands appears preserved. Impression: 1. No acute abnormality seen in the CT scan cervical spine. PQRS Compliance Statement: One or more of the following individualized dose reduction techniques were utilized for this examination: 1. Automated exposure control 2. Adjustment of the mA and/or kV according to patient size 3. Use of iterative reconstruction technique Electronically signed by: Brielle Myles MD (02/05/2017 3:29 PM) [facility] DICTATED and SIGNED BY: BRIELLE MYLES MD DATE: 02/05/17 1526 PROCEDURE: ELBOW RIGHT 3V Three-view right elbow radiographs 02/05/2017 Clinical history: Fall with injury to the right elbow. AP, oblique and lateral digital radiographs of the right elbow were obtained. No fracture or dislocation of the right elbow is seen. There is no radiographic evidence of a joint effusion. Impression: No fracture or dislocation of the right elbow is seen. DICTATED and SIGNED BY: GRETEL PANTOJA MD DATE: 02/05/17 1505 PROCEDURE: CLAVICLE LEFT 2 view left clavicle radiographs 02/05/2017 Clinical history: Fall with injury to the left clavicle. AP and axial digital radiographs of the left clavicle were obtained. No fracture or dislocation of the left clavicle is seen. The left AC joint is intact. Impression: No fracture or dislocation of the left clavicle is seen. DICTATED and SIGNED BY: GRETEL PANTOJA MD DATE: 02/05/17 150[] Course & Med Decision Making Course & Med Decision Making Pertinent Labs and Imaging studies reviewed. (See chart for details) The patient presents with pain after a fall. Unclear etiology, possibly related to syncope. Obtained labs, EKG, UCG, no acute abnormalities identified. She had severe pain to head, neck, back, & multiple joints. Obtained imaging of areas of concern without any identified fracture or significant abnormality. Cervical collar clinically cleared by me after negative imaging. She was able to ambulate with steady gait. No evidence of arrhythmia on cardiac telemetry monitoring. Recommend supportive care with rest , hydration, tylenol or ibuprofen for pain, flexeril for muscle spasm. She sees pain management & has previously taken dilaudid for pain, currently on lyrica. Recommend follow up with PCP or pain management if she has severe ongoing pain. Come back for altered mental status, focal neuro deficit, chest pain, palpitations, shortness of breath, recurrence of syncope, any otherwise worsening condition. Discharged home in stable condition. [] Dragon Disclaimer Dragon Disclaimer This electronic medical record was generated, in whole or in part, using a voice recognition dictation system. Departure Departure Impression: Primary Impression: Closed head injury Additional Impressions: Contusion, multiple sites Syncope Disposition: 01 HOME, SELF-CARE Condition: STABLE Referrals: LEXA STAFFORD MD (PCP) Patient Instructions: Head Injury, Adult, [id number] Additional Instructions: You were seen in the emergency department today for pain after a fall. No serious injuries were identified. He will probably be sore tomorrow. Please rest , apply ice, take Tylenol or ibuprofen for pain. Use Flexeril for muscle spasm. Follow-up with primary care physician or pain management if symptoms persist. Return to the emergency department for severe confusion, uncontrolled vomiting, numbness or weakness in arms or legs, any otherwise worsening condition. Scripts Cyclobenzaprine Hcl (CYCLOBENZAPRINE HCL) 5 Mg Tablet 1 TAB PO TID Y for MUSCLE SPASMS, #10 TAB Prov: KYLE CHANEL MD 02/05/17 Problem Qualifiers KYLE CHANEL MD Feb 05, 2017 17:08
[2017-02-05 17:13] VITALS: BP 133/92
[2017-02-05 17:14] LABS: BACTERIA,URINE MODERATE /HPF (0-FEW); RBC,URINE 0 /HPF (0-2); SQUAMOUS EPITHELIAL CELL,UR MANY /LPF
--- NOTE | 2017-02-06 08:55 | RAD ---
Three-view thoracic spine radiographs 02/05/2017 Clinical history: Fall with mid back pain. AP, lateral and swimmer's lateral digital radiographs of the thoracic spine were obtained. Minimal S shaped curvature of the thoracolumbar spine is seen. No fracture or subluxation of the thoracic vertebrae is noted. No paravertebral soft tissue swelling is seen. Surgical clips are seen within the right upper quadrant of the abdomen consistent with a cholecystectomy. Degenerative changes are seen throughout the mid and lower thoracic disc spaces consisting of disc space narrowing, vertebral endplate sclerosis and minimal to mild anterior vertebral body osteophyte formation. Impression: No fracture or subluxation of the thoracic vertebrae is seen.
--- NOTE | 2017-02-06 12:01 | EKG ---
[facility] [address] [place] [address] Test Date: 2017-02-05 Test Time: 14:36:55 Pat Name: ROSALINDA ACOSTA Department: Room: Gender: F Transport Tech: : [id number] Requested By: KYLE CHANEL Order Number: [id number] Reading MD: Measurements Intervals [place] Rate: 68 P: 58 TN: 192 QRS: 28 QRSD: 80 T: 26 QT: 378 QTc: 406 Interpretive Statements SINUS RHYTHM QRS(T) CONTOUR ABNORMALITY CANNOT RULE OUT ANTEROSEPTAL MYOCARDIAL DAMAGE RI6.01 Unconfirmed report No previous ECG available for comparison
== END 2017-02-05 17:39 | disposition home or self-care (01) ==
LOC: ER 13:34
DX: S10.93XA Contusion of unspecified part of neck, initial encounter (principal); S40.012A Contusion of left shoulder, initial encounter; S50.01XA Contusion of right elbow, initial encounter; S80.01XA Contusion of right knee, initial encounter; S70.01XA Contusion of right hip, initial encounter; S20.222A Contusion of left back wall of thorax, initial encounter; S20.221A Contusion of right back wall of thorax, initial encounter; S09.90XA Unspecified injury of head, initial encounter; R55 Syncope and collapse; G89.29 Other chronic pain; E28.2 Polycystic ovarian syndrome; E89.0 Postprocedural hypothyroidism; Z88.0 Allergy status to penicillin; Z88.5 Allergy status to narcotic agent; Z88.8 Allergy status to other drugs, medicaments and biological substances; W07.XXXA Fall from chair, initial encounter; Y93.89 Activity, other specified; Y92.89 Other specified places as the place of occurrence of the external cause; Y99.8 Other external cause status
CPT/HCPCS: 36415; 70450; 72072; 72125; 73000; 73030; 73080; 73502; 73562; 80053; 80307; 81001; 81025; 83880; 84484; 85025; 87086; 93005; 99285; G0480; G0479

== ENCOUNTER → 2017-05-13 | Outpatient (CLI) | payer BC ==
[~2017-05-13] MED LIST changes: -DOCU-109 PO; -HYDR2TAB31 PO; -IBUP800T19 PO; +IOHEXOL 180 MG/ML 10 ML VIAL.; -LEVO150T5 PO; -LEVO175T5 PO; -OXYC1TAB9 PO; -TAPE100T9 PO; +methylPREDNISolone ACETATE 40 MG/ML VIAL.; +methylPREDNISolone ACETATE 80 MG/ML VIAL.
== END | disposition home or self-care (01) ==
LOC: PNCL 08:07
DX: M51.16 Intervertebral disc disorders with radiculopathy, lumbar region (principal); Z88.0 Allergy status to penicillin; Z88.5 Allergy status to narcotic agent; N80.9 Endometriosis, unspecified; E89.0 Postprocedural hypothyroidism; F41.9 Anxiety disorder, unspecified; F32.9 Major depressive disorder, single episode, unspecified
CPT/HCPCS: 62323; J1030; J1040

== ENCOUNTER 2017-06-14 17:54 | Inpatient (IN) | payer BC ==
[2017-06-14 19:08] LABS: ADD MAN DIFF? NO
[2017-06-14 19:10] LABS: BASO # 0.1 x10^3/uL (0.0-0.2); BASO % 1 % (0-3); EOS # 0.2 x10^3/uL (0.0-0.7); EOS % 5 % (0-3); HEMATOCRIT 34.6 % (36.0-47.0); HEMOGLOBIN 11.7 g/dL (12.0-15.5); LYMPH % 42 % (24-48); MEAN CORPUSCULAR HEMOGLOBIN 29 pg (25-35); MEAN CORPUSCULAR HGB CONC 34 g/dL (31-37); MEAN CORPUSCULAR VOLUME 86 fL (79-100); MONO # 0.4 x10^3/uL (0.0-1.1); MONO % 8 % (0-9); NEUT # 2.1 x10^3uL (1.8-7.7); NEUT % 45 % (31-73); PLATELET COUNT 233 x10^3/uL (140-400); RED BLOOD COUNT 4.03 x10^6/uL (3.50-5.40); WHITE BLOOD COUNT 4.7 x10^3/uL (4.0-11.0)
[2017-06-14 19:19] LABS: PROTHROMBIN TIME PATIENT 12.1 SEC (11.7-14.0)
[2017-06-14 19:21] LABS: ANION GAP 8 (6-14); BLOOD UREA NITROGEN 16 mg/dL (7-20); CALCIUM 9.4 mg/dL (8.5-10.1); CARBON DIOXIDE 28 mmol/L (21-32); CHLORIDE 104 mmol/L (98-107); CREATININE 0.8 mg/dL (0.6-1.0); GFR 77.9; GLUCOSE 133 mg/dL (70-99); POTASSIUM 3.4 mmol/L (3.5-5.1); SODIUM 140 mmol/L (136-145)
[2017-06-14 19:27] LABS: ALBUMIN 3.8 g/dL (3.4-5.0); ALK PHOS 49 U/L (46-116); ALT (SGPT) 26 U/L (14-59); AST (SGOT) 20 U/L (15-37); DIRECT BILIRUBIN 0.1 mg/dL (0.0-0.2); LIPASE 204 U/L (73-393); MAGNESIUM 1.9 mg/dL (1.8-2.4); TOTAL BILIRUBIN 0.3 mg/dL (0.2-1.0); TOTAL PROTEIN 7.4 g/dL (6.4-8.2)
[2017-06-14 19:30] LABS: TROPONINI < 0.017 ng/mL (0.000-0.055)
[2017-06-14 19:37] LABS: NT-PRO BNP 58 pg/mL (0-124)
[2017-06-14 19:37] LABS: CKMB MASS 1.5 ng/mL (0.0-3.6)
[2017-06-14 19:39] LABS: CREATINE KINASE 71 U/L (26-192)
[2017-06-14 20:01] LABS: BILIRUBIN,URINE NEGATIVE (NEG); COLOR,URINE YELLOW; GLUCOSE,URINE NEGATIVE (NEG); NITRITE,URINE NEGATIVE (NEG); PH,URINE 6.5; PROTEIN,URINE NEGATIVE (NEG-TRACE); UROBILINOGEN,URINE 0.2 mg/dL (0.2 mg/dL)
[2017-06-14 20:08] LABS: BACTERIA,URINE MODERATE /HPF (0-FEW); CLARITY,URINE HAZY; RBC,URINE 0 /HPF (0-2); SQUAMOUS EPITHELIAL CELL,UR FEW /LPF
[2017-06-14] MEDS ORDERED: levOFLOXacin PER PHARMACY. MC (20:45)
[2017-06-14] MEDS: fentaNYL PF VIAL 100 MCG/2 ML VIAL IV (21:45)
[2017-06-14] MEDS: LACTOBACILLUS RHAMNOSUS GG 1 CAPSULE. PO (22:56)
[2017-06-15] MEDS: fentaNYL PF VIAL 100 MCG/2 ML VIAL IV ×3 (05:13→12:12)
[2017-06-15 06:08] LABS: ADD MAN DIFF? NO
[2017-06-15 06:14] LABS: BASO # 0.1 x10^3/uL (0.0-0.2); BASO % 1 % (0-3); EOS # 0.2 x10^3/uL (0.0-0.7); EOS % 5 % (0-3); HEMATOCRIT 34.5 % (36.0-47.0); HEMOGLOBIN 11.3 g/dL (12.0-15.5); LYMPH # 1.7 x10^3/uL (1.0-4.8); LYMPH % 36 % (24-48); MEAN CORPUSCULAR HEMOGLOBIN 29 pg (25-35); MEAN CORPUSCULAR HGB CONC 33 g/dL (31-37); MEAN CORPUSCULAR VOLUME 87 fL (79-100); MONO # 0.5 x10^3/uL (0.0-1.1); MONO % 11 % (0-9); NEUT # 2.3 x10^3uL (1.8-7.7); NEUT % 47 % (31-73); PLATELET COUNT 199 x10^3/uL (140-400); RED BLOOD COUNT 3.97 x10^6/uL (3.50-5.40); RED CELL DISTRIBUTION WIDTH 14.6 % (11.5-14.5); WHITE BLOOD COUNT 4.8 x10^3/uL (4.0-11.0)
[2017-06-15 06:42] LABS: ANION GAP 8 (6-14); BLOOD UREA NITROGEN 14 mg/dL (7-20); CALCIUM 9.1 mg/dL (8.5-10.1); CARBON DIOXIDE 28 mmol/L (21-32); CHLORIDE 105 mmol/L (98-107); CREATININE 0.7 mg/dL (0.6-1.0); GFR 90.9; GLUCOSE 97 mg/dL (70-99); SODIUM 141 mmol/L (136-145)
[2017-06-15] MEDS: LACTOBACILLUS RHAMNOSUS GG 1 CAPSULE. PO ×2 (08:30→21:21)
[2017-06-15] MEDS: BUTORPHANOL 2 MG/ML VIAL. IV (16:37)
[2017-06-15] MEDS: ONDANSETRON PF 4 MG/2 ML VIAL. IV (16:42)
[2017-06-15] MEDS: CYCLOBENZAPRINE 10 MG TABLET. PO (21:21)
[2017-06-15] MEDS: LIDOCAINE (700MG/PATCH) PATCH. TD (21:21)
[2017-06-16] MEDS: BUTORPHANOL 2 MG/ML VIAL. IV ×4 (00:18→21:40)
[2017-06-16] MEDS: LACTOBACILLUS RHAMNOSUS GG 1 CAPSULE. PO ×2 (10:02→21:40)
[2017-06-16 18:57] LABS: THYROID STIM HORMONE (TSH) 0.366 uIU/mL (0.358-3.74)
[2017-06-16 19:00] LABS: VITAMIN-B12 678 pg/mL (247-911)
[2017-06-16] MEDS: methylPREDNISolone ACETATE 40 MG/ML VIAL. IM ×2 (19:45)
[2017-06-16] MEDS: BUPIVACAINE MPF 0.25% 10 ML VIAL. IJ (19:45)
[2017-06-16] MEDS ORDERED: DOCUSATE SODIUM 283 MG/5 ML ENEMA. PR (19:45)
[2017-06-16] MEDS ORDERED: methylPREDNISolone ACETATE 40 MG/ML VIAL. ×2 (20:00)
[2017-06-16] MEDS ORDERED: BUPIVACAINE MPF 0.25% 10 ML VIAL. (20:00)
[2017-06-16] MEDS: LIDOCAINE (700MG/PATCH) PATCH. TD (21:00)
[2017-06-16] MEDS: GABAPENTIN 100 MG CAPSULE. PO (21:40)
[2017-06-16] MEDS: SENNOSIDES/DOCUSATE 8.6/50MG TABLET. PO (21:40)
[2017-06-16] MEDS: FAMOTIDINE 20 MG/2 ML VIAL IVP (22:52)
[2017-06-16] MEDS: diphenhydrAMINE 50 MG/ML VIAL IVP (22:52)
[2017-06-16] MEDS: methylPREDNISolone SOD SUCC PF 40 MG/ML VIAL. IV (22:54)
[2017-06-16] MEDS ORDERED: diphenhydrAMINE 50 MG/ML VIAL IM (23:00)
[2017-06-16] MEDS ORDERED: methylPREDNISolone SOD SUCC PF 125 MG/2 ML VIAL. IV (23:00)
[2017-06-16] MEDS ORDERED: FAMOTIDINE 20 MG/2 ML VIAL IVP (23:00)
[2017-06-17] MEDS: IOHEXOL 300 MG/ML 100ML VIAL. IV (07:00)
[2017-06-17] MEDS ORDERED: CONTRAST GIVEN MC (07:00)
[2017-06-17 07:32] LABS: ANION GAP 11 (6-14); BLOOD UREA NITROGEN 12 mg/dL (7-20); CALCIUM 9.4 mg/dL (8.5-10.1); CARBON DIOXIDE 28 mmol/L (21-32); CHLORIDE 103 mmol/L (98-107); CREATININE 0.7 mg/dL (0.6-1.0); GFR 90.9; GLUCOSE 149 mg/dL (70-99); SODIUM 142 mmol/L (136-145)
[2017-06-17 07:34] LABS: POTASSIUM 4.9 mmol/L (3.5-5.1)
[2017-06-17 07:57] LABS: BARBITURATES NEG (NEG); BENZODIAZEPINES NEG (NEG); CANNABINOIDS NEG (NEG); COCAINE NEG (NEG); METHADONE NEG (NEG); OPIATES POS (NEG); PHENCYCLIDINE NEG (NEG)
[2017-06-17 07:59] LABS: AMPHETAMINE/METHAMPHETAMINE NEG (NEG); ETHANOL, URINE NEG (NEG)
[2017-06-17] MEDS: MAGNESIUM HYDROXIDE 2,400 MG/30 ML ORAL.SUSP. PO (08:40)
[2017-06-17] MEDS: SENNOSIDES/DOCUSATE 8.6/50MG TABLET. PO (08:41)
[2017-06-17] MEDS: BISACODYL 5 MG TABLET.DR. PO (08:41)
[2017-06-17] MEDS: BISACODYL 10 MG SUPP.RECT. PR (08:41)
[2017-06-17] MEDS: LACTOBACILLUS RHAMNOSUS GG 1 CAPSULE. PO (08:41)
[2017-06-17] MEDS: methylPREDNISolone SOD SUCC PF 40 MG/ML VIAL. IV (08:41)
[2017-06-17] MEDS: GABAPENTIN 100 MG CAPSULE. PO ×2 (08:41→12:58)
[2017-06-17 08:54] LABS: ADD MAN DIFF? NO
[2017-06-17 09:29] LABS: BASO % 1 % (0-3); EOS % 0 % (0-3); HEMATOCRIT 40.5 % (36.0-47.0); HEMOGLOBIN 13.3 g/dL (12.0-15.5); LYMPH # 0.5 x10^3/uL (1.0-4.8); LYMPH % 14 % (24-48); MEAN CORPUSCULAR HEMOGLOBIN 28 pg (25-35); MEAN CORPUSCULAR HGB CONC 33 g/dL (31-37); MEAN CORPUSCULAR VOLUME 87 fL (79-100); MONO # 0.1 x10^3/uL (0.0-1.1); MONO % 3 % (0-9); NEUT % 82 % (31-73); PLATELET COUNT 234 x10^3/uL (140-400); RED BLOOD COUNT 4.67 x10^6/uL (3.50-5.40); RED CELL DISTRIBUTION WIDTH 14.4 % (11.5-14.5); WHITE BLOOD COUNT 3.7 x10^3/uL (4.0-11.0)
[2017-06-17 09:52] LABS: SEDIMENTATION RATE 16 (0-25)
[2017-06-17] MEDS: NITROFURANTOIN MONOHYD/M-CRYST 100 MG CAPSULE. PO (12:58)
[2017-06-17] MEDS: traMADol 50 MG TABLET PO (15:17)
== END 2017-06-17 18:20 | disposition home or self-care (01) | DRG 696 ==
LOC: ER 17:54 → 4 NORTH 20:00
DX: N39.498 Other specified urinary incontinence (principal); E28.2 Polycystic ovarian syndrome; E55.9 Vitamin D deficiency, unspecified; E89.0 Postprocedural hypothyroidism; G89.29 Other chronic pain; M19.90 Unspecified osteoarthritis, unspecified site; N30.20 Other chronic cystitis without hematuria; N80.9 Endometriosis, unspecified; Z88.0 Allergy status to penicillin; Z88.8 Allergy status to other drugs, medicaments and biological substances; Z82.49 Family history of ischemic heart disease and other diseases of the circulatory system
CPT/HCPCS: 36415; 72148; 74170; 80048; 80076; 80307; 81001; 82306; 82553; 82607; 83690; 83735; 83880; 84443; 84484; 85025; 85610; 85651; 87086; 87186; 93005; 97162-GP; 97166-GO; 97530-GO; 97535-GO; 99285; 99285-25; J1200; J1956; J2405; J2920; J3010; Q9967; S0028

== ENCOUNTER 2017-10-27 11:07 | Inpatient (IN) | payer BC ==
[2017-10-27] MEDS: fentaNYL PF VIAL 100 MCG/2 ML VIAL IV ×3 (12:46→17:30)
[2017-10-27 12:55] LABS: ADD MAN DIFF? NO
[2017-10-27 13:00] LABS: BASO # 0.1 x10^3/uL (0.0-0.2); BASO % 1 % (0-3); BILIRUBIN,URINE NEGATIVE (NEG); CLARITY,URINE CLEAR; COLOR,URINE YELLOW; EOS # 0.2 x10^3/uL (0.0-0.7); EOS % 5 % (0-3); GLUCOSE,URINE NEGATIVE (NEG); HEMATOCRIT 37.8 % (36.0-47.0); HEMOGLOBIN 12.6 g/dL (12.0-15.5); LYMPH # 1.4 x10^3/uL (1.0-4.8); LYMPH % 28 % (24-48); MEAN CORPUSCULAR HEMOGLOBIN 29 pg (25-35); MEAN CORPUSCULAR HGB CONC 33 g/dL (31-37); MEAN CORPUSCULAR VOLUME 86 fL (79-100); MONO # 0.5 x10^3/uL (0.0-1.1); MONO % 10 % (0-9); NEUT # 2.7 x10^3uL (1.8-7.7); NEUT % 56 % (31-73); NITRITE,URINE NEGATIVE (NEG); PH,URINE 7.5; PLATELET COUNT 281 x10^3/uL (140-400); PROTEIN,URINE NEGATIVE (NEG-TRACE); RED CELL DISTRIBUTION WIDTH 14.6 % (11.5-14.5); UROBILINOGEN,URINE 0.2 mg/dL (0.2 mg/dL); WHITE BLOOD COUNT 4.9 x10^3/uL (4.0-11.0)
[2017-10-27 13:05] LABS: ANION GAP 10 (6-14); BLOOD UREA NITROGEN 19 mg/dL (7-20); BUN/CREATININE RATIO 27 (6-20); CALCIUM 8.3 mg/dL (8.5-10.1); CARBON DIOXIDE 27 mmol/L (21-32); CHLORIDE 104 mmol/L (98-107); CREATININE 0.7 mg/dL (0.6-1.0); GFR 90.5; GLUCOSE 98 mg/dL (70-99); POTASSIUM 4.4 mmol/L (3.5-5.1); SODIUM 141 mmol/L (136-145)
[2017-10-27 13:06] LABS: BARBITURATES NEG (NEG); BENZODIAZEPINES NEG (NEG); CANNABINOIDS NEG (NEG); COCAINE NEG (NEG); METHADONE NEG (NEG); OPIATES NEG (NEG); PHENCYCLIDINE NEG (NEG)
[2017-10-27 13:08] LABS: AMPHETAMINE/METHAMPHETAMINE NEG (NEG); ETHANOL, URINE NEG (NEG)
[2017-10-27 13:11] LABS: ALBUMIN 3.8 g/dL (3.4-5.0); ALBUMIN/GLOBULIN RATIO 1.1 (1.0-1.7); ALK PHOS 54 U/L (46-116); ALT (SGPT) 31 U/L (14-59); AST (SGOT) 24 U/L (15-37); TOTAL BILIRUBIN 0.3 mg/dL (0.2-1.0); TOTAL PROTEIN 7.4 g/dL (6.4-8.2)
[2017-10-27 13:12] LABS: BACTERIA,URINE 0 /HPF (0-FEW); RBC,URINE OCC /HPF (0-2); SQUAMOUS EPITHELIAL CELL,UR MOD /LPF
[2017-10-27] MEDS ORDERED: ONDANSETRON PF 4 MG/2 ML VIAL. IV (13:30)
[2017-10-27] MEDS: IV NORMAL SALINE 1000ML BAG 1,000 ML IV ×3 (15:46→21:29)
[2017-10-27] MEDS: MAGNESIUM CITRATE 296 ML SOLUTION. PO (15:46)
[2017-10-27] MEDS: ACETAMINOPHEN 325 MG TABLET. PO (15:48)
[2017-10-27] MEDS: KETOROLAC TROMETHAMINE 10 MG TABLET PO (20:02)
[2017-10-28] MEDS: fentaNYL PF VIAL 100 MCG/2 ML VIAL IV ×3 (02:15→18:27)
[2017-10-28 03:56] LABS: ADD MAN DIFF? NO
[2017-10-28 04:01] LABS: BASO % 1 % (0-3); EOS # 0.2 x10^3/uL (0.0-0.7); EOS % 4 % (0-3); HEMATOCRIT 34.2 % (36.0-47.0); HEMOGLOBIN 11.6 g/dL (12.0-15.5); LYMPH # 1.4 x10^3/uL (1.0-4.8); LYMPH % 34 % (24-48); MEAN CORPUSCULAR HEMOGLOBIN 30 pg (25-35); MEAN CORPUSCULAR HGB CONC 34 g/dL (31-37); MEAN CORPUSCULAR VOLUME 87 fL (79-100); MONO # 0.4 x10^3/uL (0.0-1.1); MONO % 11 % (0-9); NEUT % 49 % (31-73); PLATELET COUNT 229 x10^3/uL (140-400); RED BLOOD COUNT 3.93 x10^6/uL (3.50-5.40)
[2017-10-28 04:11] LABS: ANION GAP 5 (6-14); BLOOD UREA NITROGEN 17 mg/dL (7-20); CALCIUM 8.3 mg/dL (8.5-10.1); CARBON DIOXIDE 29 mmol/L (21-32); CHLORIDE 107 mmol/L (98-107); CREATININE 0.6 mg/dL (0.6-1.0); GFR 108.1; GLUCOSE 105 mg/dL (70-99); POTASSIUM 4.3 mmol/L (3.5-5.1); SODIUM 141 mmol/L (136-145)
[2017-10-28] MEDS ORDERED: NITROGLYCERIN SUBLINGUAL 0.4 MG BOTTLE OF 25. SL (05:16)
[2017-10-28] MEDS: NITROGLYCERIN SUBLINGUAL 0.4 MG BOTTLE OF 25. SL (05:55)
[2017-10-28] MEDS: IV NORMAL SALINE 1000ML BAG 1,000 ML IV (06:07)
[2017-10-28 06:20] LABS: TROPONINI < 0.017 ng/mL (0.000-0.055)
[2017-10-28] MEDS ORDERED: POLYETHYLENE GLYCOL 3350 17 GM PACKET. PO (09:45)
[2017-10-28] MEDS ORDERED: MAGNESIUM HYDROXIDE 2,400 MG/30 ML ORAL.SUSP. PO (10:00)
[2017-10-28] MEDS ORDERED: BISACODYL 10 MG SUPP.RECT. PR (10:00)
[2017-10-28] MEDS: DOCUSATE SODIUM 100 MG CAPSULE. PO (10:01)
[2017-10-28] MEDS: SENNOSIDES/DOCUSATE 8.6/50MG TABLET. PO (10:01)
[2017-10-28] MEDS: POLYETHYLENE GLYCOL 3350 17 GM PACKET. PO (10:01)
[2017-10-28] MEDS: BISACODYL 5 MG TABLET.DR. PO (11:29)
[2017-10-28] MEDS: ACETAMINOPHEN 325 MG TABLET. PO (11:45)
[2017-10-28] MEDS: KETOROLAC TROMETHAMINE 10 MG TABLET PO (12:28)
[2017-10-28] MEDS ORDERED: fentaNYL PF VIAL 100 MCG/2 ML VIAL IV (18:00)
[2017-10-29] MEDS: fentaNYL PF VIAL 100 MCG/2 ML VIAL IV (02:28)
[2017-10-29] MEDS: DOCUSATE SODIUM 100 MG CAPSULE. PO (08:31)
[2017-10-29] MEDS: BISACODYL 5 MG TABLET.DR. PO (08:31)
[2017-10-29] MEDS: KETOROLAC TROMETHAMINE 10 MG TABLET PO (08:33)
== END 2017-10-29 13:36 | disposition home or self-care (01) | DRG 558 ==
LOC: ER 11:07 → 5 NORTH 13:08
DX: M70.62 Trochanteric bursitis, left hip (principal); M51.16 Intervertebral disc disorders with radiculopathy, lumbar region; E03.9 Hypothyroidism, unspecified; E28.2 Polycystic ovarian syndrome; G89.29 Other chronic pain; K59.09 Other constipation; R32 Unspecified urinary incontinence; M77.9 Enthesopathy, unspecified; M70.61 Trochanteric bursitis, right hip; Y93.89 Activity, other specified; Z90.49 Acquired absence of other specified parts of digestive tract; Z88.6 Allergy status to analgesic agent; Z88.0 Allergy status to penicillin; Z88.8 Allergy status to other drugs, medicaments and biological substances
CPT/HCPCS: 36415; 74018; 80048; 80053; 80307; 81001; 84484; 85025; 93005; 96374; 97162-GP; 97165-GO; 99285; 99285-25; J3010; J7030

== ENCOUNTER 2018-02-21 16:16 | Emergency (ER) | payer BC ==
[~2018-02-21] VITALS: Ht 175.3 cm; Wt 81.2 kg
[~2018-02-21 16:16] MED LIST changes: +CYCL5TAB PO; +DOCU-109 PO; +HYDR2TAB31 PO; +IBUP800T19 PO; -IOHEXOL 180 MG/ML 10 ML VIAL.; +LEVO150T5 PO; +LEVO175T5 PO; +OXYC-411 PO; +TAPE100T9 PO; -methylPREDNISolone ACETATE 40 MG/ML VIAL.; -methylPREDNISolone ACETATE 80 MG/ML VIAL.
[2018-02-21] MEDS ORDERED: ORPH100T PO (17:27)
[2018-02-21] MEDS ORDERED: MELO15TA23 PO (17:27)
--- NOTE | 2018-02-21 17:28 | PHYS DOC ---
Past Medical History Past Medical History: Endometriosis, Other Additional Past Medical Histor: CHRONIC BACK PAIN,PCOS, GRAVES DISEASE Past Surgical History: Cholecystectomy, , Other Additional Past Surgical Histo: THRYROIDECTOMY Alcohol Use: None Drug Use: None Adult General Chief Complaint Chief Complaint: BACK PAIN OR INJURY [facility] HPI Patient is a 47 year old female who presents with chronic low back pain for the last year and a half. She recently got a heart rate sedation of the nerves in her back at on January 18 and she currently has another appointment on March 06 talk but the physicians. Patient states that has not helped her pain at all and in fact she is still at a 10 out of 10 and has been for last 3 weeks. Patient states she was at a 7 out of 10. Patient states that she also has sciatica with occasional right foot drop and has chronic falls because of the back pain. Patient states that she is at work today and fell again but did not hurt herself. Patient states her primary care doctor gave her Ultram states is not working. Patient states that the back of the neck is also not working for her pain. Patient states that she has been losing control of her bladder sporadically since January 29. Patient has no loss of bowel. She is alert and oriented and ambulated into the ED. She is very tearful and upset because she has called her spinal doctor at in her primary care doctor and they keep pushing her off [id number] and finally they both told her today to come to the ED. Patient states she did not want to come to the ED because she knows that we cannot help her pain are fixer because this is a chronic problem. Patient has agreed to be taken off the diclofenac and put on meloxicam and has received a shot of Norflex and Toradol. Patient will be given a prescription for Norflex and meloxicam. Review of Systems Review of Systems Constitutional: Denies fever or chills [] Eyes: Denies change in visual acuity, redness, or eye pain [] HENT: Denies nasal congestion or sore throat [] Respiratory: Denies cough or shortness of breath [] Cardiovascular: No additional information not addressed in HPI [] GI: Denies abdominal pain, nausea, vomiting, bloody stools or diarrhea [] : Chronic loss of bladder. Denies dysuria or hematuria [] Musculoskeletal: Chronic back pain or joint pain [] Integument: Denies rash or skin lesions [] Neurologic: Denies headache, focal weakness or sensory changes [] Endocrine: Denies polyuria or polydipsia [] All other systems were reviewed and found to be within normal limits, except as documented in this note. Current Medications Current Medications Current Medications Medications (Trade) Dose Ordered Sig/Anibal Start Time Stop Time Status Last Admin Dose Admin Ketorolac Tromethamine (Toradol Im) 60 mg 1X ONCE 02/21/18 17:30 02/21/18 17:31 DC 02/21/18 17:32 60 MG Orphenadrine Citrate (Norflex) 60 mg 1X ONCE 02/21/18 17:30 02/21/18 17:31 DC 02/21/18 17:31 60 MG Allergies Allergies Allergies Coded Allergies Type Severity Reaction Last Updated Verified Penicillins Allergy Intermediate Itching 12/09/14 Yes butorphanol Allergy Intermediate Swelling 06/17/17 Yes codeine Allergy Intermediate Itching 12/12/14 Yes hydrocodone Allergy Intermediate Hives 01/19/17 Yes oxycodone Allergy Intermediate Hives 12/12/14 Yes metoclopramide Adverse Reaction Severe Visual Halluciations 12/11/14 Yes Physical Exam Physical Exam Constitutional: Well developed, well nourished, no acute distress, non-toxic appearance. [] HENT: Normocephalic, atraumatic, bilateral external ears normal, oropharynx moist, no oral exudates, nose normal. [] Eyes: PERRLA, EOMI, conjunctiva normal, no discharge. [] Neck: Normal range of motion, no tenderness, supple, no stridor. [] Cardiovascular:Heart rate regular rhythm, no murmur [] Lungs & Thorax: Bilateral breath sounds clear to auscultation [] Abdomen: Bowel sounds normal, soft, no tenderness, no masses, no pulsatile masses. [] Skin: Warm, dry, no erythema, no rash. [] Back: Chronic low back pain. chronic tenderness, no CVA tenderness. [] Extremities: No tenderness, no cyanosis, no clubbing, ROM intact, no edema. [] Neurologic: Alert and oriented X 3, normal motor function, normal sensory function, no focal deficits noted. [] Psychologic: Affect normal, judgement normal, mood normal. [] Current Patient Data Vital Signs Vital Signs Date Time Temp Pulse Resp B/P (MAP) Pulse Ox O2 Delivery O2 Flow Rate FiO2 02/21/18 16:37 98.1 76 18 164/106 (125) 100 Room Air 98.1 EKG EKG [] Radiology/Procedures Radiology/Procedures [] Course & Med Decision Making Course & Med Decision Making Patient is a 47 year old female who presents with chronic low back pain for the last year and a half. She recently got a heart rate sedation of the nerves in her back at on January 18 and she currently has another appointment on March 06 talk but the physicians. Patient states that has not helped her pain at all and in fact she is still at a 10 out of 10 and has been for last 3 weeks. Patient states she was at a 7 out of 10. Patient states that she also has sciatica with occasional right foot drop and has chronic falls because of the back pain. Patient states that she is at work today and fell again but did not hurt herself. Patient states her primary care doctor gave her Ultram states is not working. Patient states that the back of the neck is also not working for her pain. Patient states that she has been losing control of her bladder sporadically since January 29. Patient has no loss of bowel. She is alert and oriented and ambulated into the ED. She is very tearful and upset because she has called her spinal doctor at in her primary care doctor and they keep pushing her off [id number] and finally they both told her today to come to the ED. Patient states she did not want to come to the ED because she knows that we cannot help her pain are fixer because this is a chronic problem. Patient has agreed to be taken off the diclofenac and put on meloxicam and has received a shot of Norflex and Toradol. Patient will be given a prescription for Norflex and meloxicam. Patient is told that she needs to call her doctors immediately tomorrow morning to be seen for follow-up especially since her pain is not controlled. Patient is alert and oriented and tearful. Patient states that all of her pain that she is having in her symptoms are all chronic and she' s been dealing with them for the last year and a half. Patient states there is nothing new she states did not know what to do and she wants some pain relief. Lungs are clear to auscultation. Heart rate is regular without murmur. She ambulates with a steady gait. 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 Patient doesn't have any numbness in any extremity and no swelling in any extremity. She is neurologically intact. Patient denies headache or visual changes. Patient is agreeable to this discharge plan and will follow up tomorrow. I have gone over this patient with Dr. Liu is agreeable with discharge plan and plan of care. [] Dragon Disclaimer Dragon Disclaimer This electronic medical record was generated, in whole or in part, using a voice recognition dictation system. Departure Departure Impression: Primary Impression: Chronic back pain Disposition: HOME, SELF-CARE Condition: STABLE Referrals: LEXA STAFFORD MD (PCP) Patient Instructions: Chronic Back Pain Additional Instructions: Call your doctor in the morning for follow up. Take medications as prescribed. Scripts Orphenadrine Citrate (ORPHENADRINE CITRATE) 100 Mg Tablet.er 1 TAB PO BID, #30 TAB Prov: LANETTE OLSEN APRN 02/21/18 Meloxicam (MELOXICAM) 15 Mg Tablet 1 TAB PO DAILY, #30 TAB 2 Refills Prov: LANETTE OLSEN APRN 02/21/18 Problem Qualifiers Primary Impression: Chronic back pain Back pain location: low back pain Back pain laterality: bilateral Sciatica presence: with sciatica Sciatica laterality: bilateral sciatica Qualified Codes: M54.42 - Lumbago with sciatica, left side; M54.41 - Lumbago with sciatica, right side; G89.29 - Other chronic pain LANETTE OLSEN APRN Feb 21, 2018 17:28
[2018-02-21] MEDS ORDERED: ORPHENADRINE CITRATE 60 MG/2 ML VIAL. IM ONE (17:30)
[2018-02-21] MEDS ORDERED: KETOROLAC 60 MG/2 ML INJ. IM ONE (17:30)
[2018-02-21 18:02] VITALS: BP 137/96
== END 2018-02-21 18:02 | disposition home or self-care (01) ==
LOC: ER 16:16
DX: G89.29 Other chronic pain (principal); M54.5 Low back pain; E89.0 Postprocedural hypothyroidism; Z90.49 Acquired absence of other specified parts of digestive tract; Z88.0 Allergy status to penicillin; Z88.5 Allergy status to narcotic agent; Z88.8 Allergy status to other drugs, medicaments and biological substances
CPT/HCPCS: 96372; 99284; J1885; J2360